=== PATIENT | female | born 1940 | race Caucasian/White ===

== ENCOUNTER → 2017-01-11 | Outpatient (CLI) | payer MEDICARE, OTHER ==
--- NOTE | 2017-01-11 09:17 | WOMENS IMAGING REPORT ---
EXAM DESCRIPTION: BILAT SCREENING MAMMO W/CAD COMPLETED DATE/TIME: 01/11/2017 8:35 am REASON FOR STUDY: Z12.31, ROUTINE SCREENING MAMMO Z12.31 ENCNTR SCREEN MAMMOGRAM FOR MALIGNANT NEOP LASM OF JITENDRA COMPARISON: October 2015 and October 2014 TECHNIQUE: Standard craniocaudal and mediolateral oblique views of each breast recorded using [employer] l acquisition. LIMITATIONS: None. FINDINGS: Findings present which are benign by mammographic criteria. No suspicious masses, calcifi cations or architectural distortion. Pertinent benign findings: The previously nodular changes in the central portion of the right breast which were demonstrated to represent cysts on the basis of a right breast ultrasound appears stable. Read with the assistance of CAD. .[facility] - R2 Cenova Version 1.3 .[facility] - R2 Cenova Version 1.3 .[facility] - R2 Cenova Version 2.4 .[facility] [place] R2 Cenova Version 2.4 .[facility] - R2 [employer] Version 9.2 Benign mammographic findings may include one or more of the following: Smooth masses, popcorn/rim/co arse calcifications, asymmetries, post-procedure changes, and lesions with long-standing stability. IMPRESSION: BENIGN MAMMOGRAPHIC FINDINGS. BIRADS 2 BREAST DENSITY: b. There are scattered areas of fibroglandular density. BIRAD: 2 BENIGN FINDING(S) RECOMMENDATION: ROUTINE SCREENING COMMENT: The patient has been notified of the results by letter per SA requirements. Additional no tification policies are in place for contacting patient with suspicious or incomplete findings. Quality ID #[id number]: The [employer] recommends an annual screening mammogram for women aged 40 years or over. This facility utilizes a reminder system to ensure that all patients receive reminder letters, and/or direct phone calls for appointments. This includes reminders for routine scr eening mammograms, diagnostic mammograms, or other Breast Imaging Interventions when appropriate. Th is patient will be placed in the appropriate reminder system. The [employer] (ACR) has developed recommendations for screening MRI of the breast s in certain patient populations, to be used in conjunction with mammography. Breast MRI surveillanc e may be appropriate for women with more than 20% lifetime risk of developing breast cancer as deter mined by genetic testing, significant family history of the disease, or history of mantle radiation f or Hodgkins Disease. ACR Practice Guidelines 2008. TECHNICAL DOCUMENTATION: FINDING NUMBER: (1) ASSESSMENT: (1) JOB ID: [id number] [employer]- All Rights Reserved
== END ==
LOC: WI 11:31
PROVIDERS: ATTEND Physician Assistant
DX: Z12.31 Encounter for screening mammogram for malignant neoplasm of breast (principal)
CPT/HCPCS: 77067; G0202

== ENCOUNTER 2017-05-23 09:10 | Inpatient (IN) | payer MEDICARE, OTHER ==
[2017-05-23 09:34] LABS: PROTHROMBIN TIME 13.8 SEC (11.4-15.4)
[2017-05-23 09:35] LABS: HEMATOCRIT 45.4 % (36.0-47.0); HEMOGLOBIN 15.4 g/dL (12.0-15.5); HGB HCT DIFFERENCE 0.8; MEAN CORPUSCULAR HGB CONC 33.9 g/dL (32.0-36.0); MEAN CORPUSCULAR VOLUME 89 fl (80-97); RED BLOOD COUNT 5.12 10^6/uL (3.72-5.28); RED CELL DISTRIBUTION WIDTH 13.1 % (11.5-14.0)
[2017-05-23 09:45] LABS: VENOUS BLOOD BASE EXCESS 2.6 mmol/L; VENOUS BLOOD HCO3 28.7 mmol/L (20-32); VENOUS BLOOD PH 7.38 (7.30-7.42)
[2017-05-23 09:49] LABS: ALANINE AMINOTRANSFERASE 41 U/L (9-52); ALKALINE PHOSPHATASE 74 U/L (38-126); ANION GAP 15 (5-19); ASPARTATE AMINO TRANSFERASE 52 U/L (14-36); BILIRUBIN,DIRECT 0.6 mg/dL (0.0-0.4); BILIRUBIN,TOTAL 1.1 mg/dL (0.2-1.3); BLOOD UREA NITROGEN 25 mg/dL (7-20); CALCIUM 9.1 mg/dL (8.4-10.2); CARBON DIOXIDE 25 mmol/L (22-30); CHLORIDE 108 mmol/L (98-107); CREATININE RESULT 0.49 mg/dL (0.52-1.25); GLUCOSE 130 mg/dL (75-110); POTASSIUM 4.6 mmol/L (3.6-5.0); SODIUM 147.6 mmol/L (137-145)
[2017-05-23 09:56] LABS: BAND NEUTROPHILS % (MANUAL) 1 % (3-5); BASOPHILS % (MANUAL) 0 % (0-2); EOSINOPHILS % (MANUAL) 0 % (0-6); LYMPHOCYTES % (MANUAL) 4 % (13-45); TOTAL CELLS COUNTED 100
[2017-05-23] MEDS ORDERED: CEFTRIAXONE 1 GM/D5W RTU 1 GM/50 ML RTUPB IV ONE (10:00)
[2017-05-23] MEDS ORDERED: RINGERS SOLUTION,LACTATED 1,000 ML IV ONE ×2 (10:00→11:00)
[2017-05-23 10:08] LABS: OVALOCYTES SLIGHT; PLATELET CLUMPS PRESENT; POIKILOCYTOSIS SLIGHT; TOXIC GRANULATION 1+; TOXIC VACUOLATION PRESENT
[2017-05-23 10:09] LABS: PATH REVIEW PATHOLOGIST REVIEWED
[2017-05-23 10:13] LABS: CREATINE KINASE MB 8.75 ng/mL (<4.55)
[2017-05-23 10:14] LABS: TROPONIN I < 0.012 ng/mL
--- NOTE | 2017-05-23 10:17 | RADIOLOGY REPORT (SQ) ---
EXAM DESCRIPTION: CT HEAD WITHOUT COMPLETED DATE/TIME: 05/23/2017 9:54 am REASON FOR STUDY: bed t1 stroke alert COMPARISON: None. TECHNIQUE: Axial images acquired through the brain without intravenous contrast. Images reviewed wi th bone, brain and subdural windows. Images stored on PACS. All CT scanners at this facility use dose modulation, iterative reconstruction, and/or weight based d osing when appropriate to reduce radiation dose to as low as reasonably achievable (ALARA). [facility]: Dose Right [facility]: CareDose [facility]: Dose Right [facility]: Teradose 4D [facility]: Smart Technologies RADIATION DOSE: CT Rad equipment meets quality standard of care and radiation dose reduction techniq ues were employed. CTDIvol: 49.0 mGy. DLP: 783 mGy-cm. mGy. LIMITATIONS: None. FINDINGS: VENTRICLES: Normal size and contour. CEREBRUM: Low density in the right frontal lobe, relatively well-defined. Consistent with MCA distri bution infarct, likely subacute. No hemorrhage or mass or shift evident. No hydrocephalus. CEREBELLUM: No masses. No hemorrhage. No alteration of density. No evidence for acute infarction. EXTRAAXIAL SPACES: No fluid collections. No masses. ORBITS AND GLOBE: No intra- or extraconal masses. Normal contour of globe without masses. CALVARIUM: No fracture. PARANASAL SINUSES: Mild fluid in the left maxillary sinus. SOFT TISSUES: Generalized deep scalp soft tissue swelling on the left. OTHER: No other significant finding. IMPRESSION: 1. Right MCA distribution infarct. Given how well defined this is, likely subacute. EVIDENCE OF ACUTE STROKE: NO. Pertinent positive or negative findings of the imaging study reported as a CRITICAL EXAM to Amy at1 0:11 on 05/23/2017. Category of Critical Exam: Stroke alert COMMENT: Quality ID # [id number]: Final reports with documentation of one or more dose reduction techniques (e.g., Automated exposure control, adjustment of the mA and/or kV according to patient size, use of iterative reconstruction technique) TECHNICAL DOCUMENTATION: JOB ID: [id number]- All Rights Reserved
--- NOTE | 2017-05-23 10:31 | RADIOLOGY REPORT (SQ) ---
EXAM DESCRIPTION: CHEST SINGLE VIEW COMPLETED DATE/TIME: 05/23/2017 10:16 am REASON FOR STUDY: left weakness, tachycardia COMPARISON: 01/06/2014 EXAM PARAMETERS: NUMBER OF VIEWS: One view. TECHNIQUE: Single frontal radiographic view of the chest acquired. RADIATION DOSE: NA LIMITATIONS: None. FINDINGS: LUNGS AND PLEURA: No opacities, masses or pneumothorax. No pleural effusion. MEDIASTINUM AND HILAR STRUCTURES: No masses. Contour normal. HEART AND VASCULAR STRUCTURES: Heart normal in size. Normal vasculature. BONES: No acute findings. HARDWARE: None in the chest. OTHER: No other significant finding. IMPRESSION: NO ACUTE RADIOGRAPHIC FINDING IN THE CHEST. TECHNICAL DOCUMENTATION: JOB ID: [id number] [employer]- All Rights Reserved
--- NOTE | 2017-05-23 10:31 | RADIOLOGY REPORT (SQ) ---
EXAM DESCRIPTION: PELVIS AP COMPLETED DATE/TIME: 05/23/2017 10:16 am REASON FOR STUDY: left weakness COMPARISON: None. NUMBER OF VIEWS: One view TECHNIQUE: AP Pelvis LIMITATIONS: None. FINDINGS: MINERALIZATION: Normal. HIPS: No acute fracture or dislocation. No worrisome bone lesions. PELVIS AND SACRUM: No acute fracture or dislocation. No worrisome bone lesions. PUBIS AND ISCHIUM: No acute fracture. LOWER LUMBAR SPINE: No significant findings as visualized. SOFT TISSUES: No findings. OTHER: No other significant finding. IMPRESSION: NEGATIVE STUDY OF THE PELVIS. TECHNICAL DOCUMENTATION: JOB ID: [id number] [employer]- All Rights Reserved
[2017-05-23 10:34] LABS: APPEARANCE,URINE CLEAR; BILIRUBIN,URINE NEGATIVE (NEGATIVE); GLUCOSE, URINE NEGATIVE (NEGATIVE); KETONES,URINE 80 mg/dL (NEGATIVE); LEUKOCYTE ESTERASE,URINE NEGATIVE (NEGATIVE); NITRITE,URINE NEGATIVE (NEGATIVE); PROTEIN,URINE 30 mg/dL (NEGATIVE); URINE SPECIFIC GRAVITY 1.031; UROBILINOGEN,URINE NEGATIVE mg/dL (<2.0)
[2017-05-23] MEDS ORDERED: DILTIAZEM HCL INJ 25 MG/5 ML VIAL IV ONE (11:04)
[2017-05-23] MEDS ORDERED: MORPHINE SULFATE 10 MG/ML INJ IV PRN (11:22)
[2017-05-23] MEDS ORDERED: ASPIRIN 300 MG SUPP, RECTAL PR ONE (11:22)
[2017-05-23] MEDS ORDERED: ONDANSETRON HCL INJ/PF 4 MG/2 ML SDV IV ONE (11:23)
--- NOTE | 2017-05-23 11:29 | ER Document Report ---
ED General - General Chief Complaint: Altered Mental Status Stated Complaint: POSSIBLE STROKE Time Seen by Provider: 05/23/17 09:20 Mode of Arrival: Medic Information source: Patient, Relative, Emergency Med Personnel Notes: The history is as per EMS, family. The patient does not remember much about the event. This is a 76-year-old female brought in by EMS after being found on the floor the bathroom this morning. The patient lives alone and is fairly active by report. She was last seen by neighbors on Monday. The patient's daughter states that she was unable to get a hold of the patient on the phone on Monday , then Monday, then Monday and came over to the house today. The patient was found with dysphasia and left-sided weakness. TRAVEL OUTSIDE OF THE [place] IN LAST 30 DAYS: No - HPI Onset: Last week Onset/Duration: Gradual Quality of pain: Achy, Dull Severity: None Pain Level: 1 Associated symptoms: Weakness. denies: Fever, Shortness of breath Exacerbated by: Denies Relieved by: Denies Similar symptoms previously: No Recently seen / treated by doctor: No - Related Data Allergies/Adverse Reactions: acetaminophen [From Percocet] Allergy (Verified 05/23/17 11:19) oxycodone [From Percocet] Allergy (Verified 05/23/17 11:19) Home Medications: Current Home Medications Hydrochlorothiazide [Hydrodiuril 12.5 mg Capsule] 12.5 mg PO QAM 05/23/17 [ History] Losartan Potassium [Cozaar 100 mg Tablet] 100 mg PO DAILY 05/23/17 [History] Simvastatin 10 mg PO QHS 05/23/17 [History] Past Medical History - General Information source: Relative, Emergency Med Personnel - Social History Smoking Status: Former Smoker Cigarette use (# per day): No Chew tobacco use (# tins/day): No Frequency of alcohol use: None Drug Abuse: None Lives with: Family Family History: Reviewed & Not Pertinent Patient has suicidal ideation: No Patient has homicidal ideation: No - Past Medical History Cardiac Medical History: Reports: Hx Hypercholesterolemia, Hx Hypertension - medicated Denies: Hx Heart Attack Pulmonary Medical History: Denies: Hx Asthma, Hx Tuberculosis Neurological Medical History: Reports: Hx Seizures - 40-50 years ago. Denies: Hx Cerebrovascular Accident Renal/ Medical History: Denies: Hx Peritoneal Dialysis GI Medical History: Reports: Hx Hepatitis - 40years ago. 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 Denies: Hx Hysterectomy, Hx Mastectomy, Hx Open Heart Surgery, Hx Pacemaker - Immunizations Hx Pneumococcal Vaccination: 06/26/10 Review of Systems - Review of Systems Constitutional: denies: Chills, Fever EENT: No symptoms reported Cardiovascular: No symptoms reported Respiratory: No symptoms reported Gastrointestinal: No symptoms reported Genitourinary: No symptoms reported Female Genitourinary: No symptoms reported Musculoskeletal: See HPI Skin: See HPI Hematologic/Lymphatic: No symptoms reported Neurological/Psychological: See HPI Physical Exam - Vital signs Vitals: Resp 16 05/23/17 09:17 Notes: Physical exam: GENERAL: 86-year-old female, alert, answering questions, appears dehydrated. There is a strong smell of urine and the patient's clothes are saturated with urine. HEAD: Atraumatic, normocephalic. EYES: Pupils equal round and reactive to light, extraocular movements intact, sclera anicteric, conjunctiva are normal. ENT: TMs normal, nares patent, oropharynx clear without exudates. Drymucous membranes. NECK: Normal range of motion, supple without obvious mass or JVD. LUNGS: Breath sounds clear to auscultation bilaterally and equal. No wheezes rales or rhonchi. HEART: Irregularly irregular and tachycardic. The heart rate monitor shows atrial fibrillation with a ventricular rate of 115-125 ABDOMEN: Soft, normoactive bowel sounds. No tenderness to palpation. No guarding, no rebound. No masses appreciated. EXTREMITIES: See skin exam below NEUROLOGICAL: The patient is alert, she knows she is in the hospital. She is unable to answer her age or month or year. She does not recall events leading up to the fall. Cranial nerves II through XII: The patient appears to have a right sided gaze preference, she does have left facial asymmetry. She does have left-sided weakness of the arms and legs. Her speech is significantly impaired. She does appropriately recognize her son and daughter. PSYCH: Normal mood, normal affect. SKIN: Patient does have pressure sores over the left hip. She has swelling of the left upper extremity. There is no pain of the left upper extremity. (She had been dependent on that side when she was found). The patient does have pressure sores over the left first and second matter carpals in the feet bilaterally. Course - Re-evaluation Re-evalutation: 05/23/17 11:29 Note: The onset of the stroke is not known. By report, it most likely is several days old. In any event, she is not a candidate for thrombolytics at this time. The patient does appear clinically dehydrated and I am treating her with IV fluids. She was given ceftriaxone initially because of an elevated white count (21,000) and aspirate strong urine smell. The UA has come back and does not look bad. Blood and urine cultures were sent. Chest x-ray shows no evidence of infection at this time. We will provide rate control after IV fluids. - Vital Signs Vital signs: Temp Pulse Resp BP Pulse Ox 98.5 F 106 H 20 105/62 99 05/23/17 16:58 05/23/17 18:40 05/23/17 16:58 05/23/17 16:58 05/23/17 16:58 - Laboratory Result Diagrams: 05/23/17 09:18 05/23/17 09:18 Laboratory results interpreted by me: 05/23/17 05/23/17 05/23/17 09:18 09:18 09:28 WBC 21.0 H Seg Neuts % (Manual) 82 H Band Neutrophils % 1 L Lymphocytes % (Manual) 4 L Metamyelocytes % 1 H Abs Neuts (Manual) 17.6 H Abs Monocytes (Manual) 2.5 H Sodium 147.6 H Chloride 108 H BUN 25 H Creatinine 0.49 L Glucose 130 H Direct Bilirubin 0.6 H AST 52 H Creatine Kinase 1039 H CK-MB (CK-2) Urine Protein Urine Ketones Urine Blood 05/23/17 05/23/17 09:28 09:40 WBC Seg Neuts % (Manual) Band Neutrophils % Lymphocytes % (Manual) Metamyelocytes % Abs Neuts (Manual) Abs Monocytes (Manual) Sodium Chloride BUN Creatinine Glucose Direct Bilirubin AST Creatine Kinase CK-MB (CK-2) 8.75 H Urine Protein 30 H Urine Ketones 80 H Urine Blood SMALL H - Diagnostic Test Radiology reviewed: Image reviewed, Reports reviewed - CT of the head shows a subacute stroke of the right MCA distribution - EKG Interpretation by Me Rhythm: A.Fib - EKG shows atrial fibrillation with a rapid ventricular rate at 148 Critical Care Note - Critical Care Note Total time excluding time spent on procedures (mins): 60 Discharge - Discharge Clinical Impression: Acute stroke, A. fib with RVR (new onset), Dehydration, Pressure sores Condition: Serious Disposition: ADMITTED INPATIENT Admitting Provider: Hospitalist - Dr Santiago Unit Admitted: [facility]
--- NOTE | 2017-05-23 11:49 | RADIOLOGY REPORT (SQ) ---
EXAM DESCRIPTION: HUMERUS LEFT COMPLETED DATE/TIME: 05/23/2017 11:35 am REASON FOR STUDY: left ext swelling COMPARISON: LEFT FOREARM TWO VIEWS SAME DATE NUMBER OF VIEWS: Two views. TECHNIQUE: Two radiographic images were acquired of the left humerus to include elbow and shoulder i n at least one projection. LIMITATIONS: None. FINDINGS: MINERALIZATION: Osteoporotic BONES: No acute fracture or dislocation. No worrisome bone lesions. SOFT TISSUES: No radiopaque foreign body. Diffuse subcutaneous edema OTHER: No other significant finding. IMPRESSION: No fracture. Subcutaneous edema. No soft tissue gas or radiopaque foreign body TECHNICAL DOCUMENTATION: JOB ID: [id number] [employer]- All Rights Reserved
--- NOTE | 2017-05-23 11:52 | RADIOLOGY REPORT (SQ) ---
EXAM DESCRIPTION: FOREARM LEFT COMPLETED DATE/TIME: 05/23/2017 11:35 am REASON FOR STUDY: swelling COMPARISON: Left humerus two views NUMBER OF VIEWS: Two views. TECHNIQUE: Two radiographic images acquired of the left forearm, including elbow and wrist in at finesse st one projection. LIMITATIONS: None. FINDINGS: MINERALIZATION: Osteoporotic BONES: No radius or ulna fracture. Carpal bones are intact. Question acute spiral nondisplaced frac ture 5th metacarpal diaphysis, marked with a [place]. SOFT TISSUES: Diffuse forearm soft tissue swelling OTHER: No other significant finding. IMPRESSION: Diffuse forearm soft tissue swelling. No fracture of the radius or ulna Question nondisplaced fracture versus nutrient groove midshaft 5th metacarpal TECHNICAL DOCUMENTATION: JOB ID: [id number] [employer]- All Rights Reserved
[2017-05-23] MEDS ORDERED: DEXTROSE 40% GEL 15 GM TUBE PO PRN ×2 (12:34)
[2017-05-23] MEDS ORDERED: IPRATROPIUM/ALBUTEROL 0.5-2.5 MG/3 ML AMPUL NEB PRN (12:34)
[2017-05-23] MEDS ORDERED: ACETAMINOPHEN 650 MG SUPP.RECT PR PRN (12:34)
[2017-05-23] MEDS ORDERED: ONDANSETRON HCL INJ/PF 4 MG/2 ML SDV IV PRN (12:34)
[2017-05-23] MEDS ORDERED: DEXTROSE 50%-WATER 25 GM/50 ML DISP.SYRIN IV PRN ×2 (12:34)
[2017-05-23] MEDS ORDERED: GLUCAGON,HUMAN RECOMB 1 MG INJ SUBCUT PRN (12:34)
--- NOTE | 2017-05-23 13:35 | EKG REPORT ---
SEVERITY:- ABNORMAL ECG - ATRIAL FIBRILLATION, V-RATE 118-188 REPOLARIZATION ABNORMALITY, PROB RATE RELATED : Confirmed by: Jose Cruz Hodges MD 23-May-2017 13:35:17
--- NOTE | 2017-05-23 14:41 | RADIOLOGY REPORT (SQ) ---
EXAM DESCRIPTION: CAROTID DOPPLER COMPLETED DATE/TIME: 05/23/2017 2:29 pm REASON FOR STUDY: acute stroke COMPARISON: CT brain 05/23/2017 TECHNIQUE: Grayscale ultrasound, Doppler velocity and spectra, and color Doppler images acquired of the extra-cranial carotid and vertebral arteries. Images stored on PACS. LIMITATIONS: None. FINDINGS: RIGHT CAROTID CCA Velocities: Within normal limits. ICA Velocities Peak systolic 0.68 m/s. End diastolic 0.25 m/s. Proximal ICA/CCA peak systolic ratio 1.1. Spectra normal. No significant plaque. LEFT CAROTID CCA Velocities: Within normal limits. ICA Velocities Peak systolic 0.77 m/s. End diastolic 0.27 m/s. Proximal ICA/CCA peak systolic ratio 1.1. Spectra normal. No significant plaque. VERTEBRAL ARTERIES: Antegrade flow. Normal waveforms. SUBCLAVIAN ARTERIES: Not evaluated OTHER: No other significant finding. IMPRESSION: NO HEMODYNAMICALLY SIGNIFICANT STENOSIS. COMMENT: Quality ID #[id number]: Velocity criteria are extrapolated from the diameter data as defined by t he Society of Radiologists in Ultrasound Consensus Conference. Radiology 2003: 229; 340-346. TECHNICAL DOCUMENTATION: JOB ID: [id number]- All Rights Reserved
[2017-05-23] MEDS ORDERED: DILTIAZEM HCL/D5W 125 MG/125 ML RTUINJ IV PRN ×2 (16:27→16:46)
--- NOTE | 2017-05-23 16:51 | XCELERA REPORT ---
[address] [address] Transthoracic Echocardiogram Report Name: SANYA CHAU Age: 76 yrs Gender: Female : 1940 Patient Status: Inpatient Patient Location: [address] [place] [address] Study Date: 05/23/2017 01:41 PM Weight: 164 lb Procedure: A two-dimensional transthoracic echocardiogram with color flow and Doppler was performed. Study Quality: Technically suboptimal. Reason For Study: acute stroke History: CVA. Ordering Physician: JUAN HARRINGTON Performed By: Praveena Fraire Interpretation Summary Probably no LVH,and probably no wall motion abnormality.LVEF 60%.Not a study to detect thrombus.Probably no MR,TR,or [place].Cannt assess RVSP.No and no AR.Recommend FERNIE. MMode/2D Measurements & Calculations RVDd: 3.9 cm LVIDd: 3.3 cm FS: 30.8 % Ao root diam: 3.3 cm IVSd: 1.1 cm LVIDs: 2.3 cm EDV(Teich): 43.7 ml Ao root area: 8.6 cm2 LVPWd: 1.1 cm ESV(Teich): 17.6 ml LA dimension: 2.9 cm EF(Teich): 59.7 % Doppler Measurements & Calculations MV E max jordon: MV P1/2t max jordon: Ao V2 max: LV V1 max P.3 cm/sec 97.7 cm/sec 140.4 cm/sec 3.4 mmHg MV P1/2t: 63.9 msec Ao max PG: LV V1 max: MVA(P1/2t): 3.4 cm2 7.9 mmHg 92.8 cm/sec MV dec slope: 447.7 cm/sec2 PA V2 max: 92.8 cm/sec PA max P.4 mmHg Left Ventricle Probably no LVH,and probably no wall motion abnormality.LVEF 60%.Not a study to detect thrombus.Probably no MR,TR,or [place].Cannt assess RVSP.No and no AR.Recommend FERNIE. : JUAN HARRINGTON > Aiyana Dowd
--- NOTE | 2017-05-23 16:53 | PDOC H&P ---
History of Present Illness Admission Date/PCP: 05/23/17 12:03 CLAIRE NICE MD History of Present Illness: SANYA CHAU is a 76 year old white female with a past medical history of atrial fibrillation and hypertension who presents to the service after being found down for period of about 3 days. According to the patient's family they last saw her on Monday. The patient lives alone and usually walks well without any assistive devices. The patient does not have a history of regular falls. The patient's children called to check on her Monday but got no answer. They called Monday and Monday and still got no answer. They [address] and decided to go by the house this morning. Unfortunately, they found the patient in the bathroom laying on the ground. They noted that she had left- sided weakness and called the ambulance. The patient has no recollection of what happened. She does not know how she fell or ended up on the ground. The patient does have a history of atrial fibrillation. This was diagnosed in December 2013. At that time she was placed on Xarelto. She was on antihypertensives as well as simvastatin. She remained anticoagulated for about a year and a half. The patient states and her [id number] confirms that she was changed from Xarelto to Coumadin at one point. After the year and a half of anticoagulation she was taken off of her Coumadin. It is been 2 years since she has had any blood thinner. According to the patient and her [id number], the patient was "doing well". Therefore, the medication was stopped. Her last echocardiogram at this hospital was at the time of her initial diagnosis of A. fib. EF at that time was 60%. In the emergency room the patient was found to be in A. fib with RVR. Her rate was between 115 and 120. She been given 1 L of lactated Ringer's and was started on the second. Diltiazem was also given and CK was found to be at 1039. She was noted to have pressure sores on the left hip and a white count of 21. She was given a dose of Rocephin. She was not found to be in acute renal failure. X-rays of the pelvis and humerus were negative for fracture. The patient had a CT of the head done which showed right MCA subacute stroke. At the bedside the patient at one point does become emotional and tearful. She does not want to be a burden to her family. Past Medical History Cardiac Medical History: Reports: Atrial Fibrillation, Hyperlipidema, Hypertension - medicated Neurological Medical History: Reports: Seizures - 40-50 years ago GI Medical History: Reports: Hepatitis - 40years ago Past Surgical History Past Surgical History: Reports: Tonsillectomy, Vascular Surgery Social History Smoking Status: Former Smoker Frequency of Alcohol Use: None Hx Recreational Drug Use: No Hx Prescription Drug Abuse: No - Advance Directive Resuscitation Status: Do Not Resuscitate Family History Family History: Hypertension Parental Family History Reviewed: Yes Children Family History Reviewed: Yes Sibling(s) Family History Reviewed.: Yes Medication/Allergy Home Medications: Hydrochlorothiazide [Hydrodiuril 12.5 mg Capsule] 12.5 mg PO QAM 05/23/17 Losartan Potassium [Cozaar 100 mg Tablet] 100 mg PO DAILY 05/23/17 Simvastatin 10 mg PO QHS 05/23/17 Allergies/Adverse Reactions: acetaminophen [From Percocet] Allergy (Verified 05/23/17 11:19) oxycodone [From Percocet] Allergy (Verified 05/23/17 11:19) Review of Systems Review of Systems: Review of systems is difficult to obtain secondary to the patient's dysarthria. At the bedside she currently denies any chest pain or shortness of breath. No weight changes that I could discern. The patient usually gets up and walks on her own without any assistive devices. No palpitations. Her family is at the bedside and does not report that the patient has had any complaints with them. No fevers or chills recently. Physical Exam Vital Signs: Temp Pulse Resp BP Pulse Ox 98.4 F 18 97/70 L 95 05/23/17 12:01 05/23/17 12:01 05/23/17 12:01 05/23/17 12:01 GENERAL: This is a well-developed, well-nourished appearing elderly white female resting in bed currently in no acute distress. HEENT: Normocephalic. Atraumatic. Trachea is midline. Sclera are anicteric. Moist mucous membranes (the patient however has just had her mouth washed out with swabs). HEART: Irregular rate and rhythm. Tachycardic. I do not discern any rubs or gallops. Questionable murmur. LUNGS: Clear to auscultation anteriorly bilaterally with equal rise and fall of the chest. ABDOMEN: Soft, nontender, nondistended with normoactive bowel sounds EXTREMETIES: No clubbing, cyanosis or edema of the lower extremities. 2+ peripheral pulses bilaterally. Strength in the left upper and lower extremity to 2 out of 5. On the right the patient's network solutions architect is a 3 out of 5. Display Fabricator on the left and 2 out of 5. Right lower extremity is a 2-3 out of 5. Left arm and hand edema is present 2+. NEURO: Awake, alert and oriented 3. speech is garbled. I can make out about 50% of what the patient is saying. Left facial droop. Patient has difficulty shrugging her left shoulder. Muscle strength is weak around the orbit on the left side. Results Impressions: Head CT 05/23/17 09:46 IMPRESSION: 1. Right MCA distribution infarct. Given how well defined this is , likely subacute. EVIDENCE OF ACUTE STROKE: NO. Pertinent positive or negative findings of the imaging study reported as a CRITICAL EXAM to Amy at10:11 on 05/23/2017. Category of Critical Exam: Stroke alert Chest X-Ray 05/23/17 09:52 IMPRESSION: NO ACUTE RADIOGRAPHIC FINDING IN THE CHEST. Pelvis X-Ray 05/23/17 09:53 IMPRESSION: NEGATIVE STUDY OF THE PELVIS. Humerus X-Ray 05/23/17 11:01 IMPRESSION: No fracture. Subcutaneous edema. No soft tissue gas or radiopaque foreign body Forearm X-Ray 05/23/17 11:04 IMPRESSION: Diffuse forearm soft tissue swelling. No fracture of the radius or ulna Question nondisplaced fracture versus nutrient groove midshaft 5th metacarpal Assessment & Plan - Diagnosis (1) Stroke Qualifiers: Precerebral and cerebral artery: middle cerebral artery Laterality of affected vessel: right Is this a current diagnosis for this admission?: Yes Plan: Continue daily pr asa until cleared by speech. begin statin once able. begin anticoagulation in am if able. permissive hypertension. consult PT/OT/speech. (2) Paroxysmal atrial fibrillation Is this a current diagnosis for this admission?: Yes Plan: Rate control and anticoagulation. patient was not fall risk prior to this episode. (3) Dyslipidemia Plan: check lipid panel. begin statin as part of stroke management. (4) HTN (hypertension), benign Is this a current diagnosis for this admission?: Yes Plan: Permissive hypertension. Unfortunately we will need to keep rate 110 or less. (5) UTI (urinary tract infection) Qualifiers: Urinary tract infection type: site unspecified Is this a current diagnosis for this admission?: Yes Plan: Possible urinary tract infection. The patient was noted to have a very strong odor to the urine. Urinalysis essentially negative. She was given a dose of Rocephin down in the ED. Cultures have been sent. (6) Rhabdomyolysis Plan: CK at 1039. This is secondary to being down for so long. Although, I would expect it to be higher. Continue to monitor. (7) Hypernatremia Is this a current diagnosis for this admission?: Yes Plan: Likely due to slight dehydration. Although, her BUN and creatinine look pretty good. She is received 2 L of lactated Ringer's down in the ED. Continue to monitor. (8) Leukocytosis Is this a current diagnosis for this admission?: Yes Plan: Likely secondary from being down. I believe this is reactive. Patient could have an underlying urinary tract infection. However, her urinalysis looks pretty good. (9) Arm edema Is this a current diagnosis for this admission?: Yes Plan: It is likely that the patient was laying on that side for several hours to days.. X-rays negative for fracture. Keep arm elevated. (10) Metacarpal bone fracture Qualifiers: Encounter type: initial encounter Metacarpal bone: fifth Fracture type: closed Metacarpal location: other portion of metacarpal Fracture alignment: nondisplaced Laterality: left Qualified Code(s): S62.397A - Other fracture of fifth metacarpal bone, left hand, initial encounter for closed fracture Is this a current diagnosis for this admission?: Yes Plan: X-ray suggests that there could be a nondisplaced fracture of the fifth metacarpal bone. We will obtain a better look with CT. - Time Time Spent: 50 to 70 Minutes - Inpatient Certification Medical Necessity: Need Close Monitoring Due to Risk of Patient Decompensation
[2017-05-23] MEDS: POTASSI CL 20 MEQ/D5-1/2NS 1L 1,000 ML IV PRN (16:59)
[2017-05-23] MEDS: PANTOPRAZOLE SODIUM 40 MG VIAL IV SCH (17:13)
[2017-05-24] MEDS: POTASSI CL 20 MEQ/D5-1/2NS 1L 1,000 ML IV PRN ×2 (05:01→22:16)
[2017-05-24] MEDS: PANTOPRAZOLE SODIUM 40 MG VIAL IV SCH ×2 (05:05→17:26)
[2017-05-24 06:12] LABS: ABSOLUTE EOSINOPHILS # (AUTO) 0.1 10^3/uL (0.0-0.6); ABSOLUTE LYMPHOCYTES (AUTO) 1.5 10^3/uL (0.5-4.7); ABSOLUTE MONOCYTES (AUTO) 1.3 10^3/uL (0.1-1.4); ABSOLUTE NEUT (AUTO) 9.8 10^3/uL (1.7-8.2); BASOPHILS % (AUTO) 0.4 % (0-2); EOSINOPHILS % (AUTO) 1.1 % (0-6); HEMATOCRIT 38.1 % (36.0-47.0); HEMOGLOBIN 12.9 g/dL (12.0-15.5); HGB HCT DIFFERENCE 0.6; MEAN CORPUSCULAR HEMOGLOBIN 30.2 pg (27.0-33.4); MEAN CORPUSCULAR VOLUME 89 fl (80-97); RED BLOOD COUNT 4.29 10^6/uL (3.72-5.28); RED CELL DISTRIBUTION WIDTH 13.5 % (11.5-14.0); SEGMENTED NEUTROPHILS % (AUTO) 76.5 % (42-78); WHITE BLOOD COUNT 12.8 10^3/uL (4.0-10.5)
[2017-05-24 06:25] LABS: PROTHROMBIN TIME 14.1 SEC (11.4-15.4)
[2017-05-24 06:28] LABS: ANION GAP 8 (5-19); BLOOD UREA NITROGEN 17 mg/dL (7-20); CALCIUM 8.3 mg/dL (8.4-10.2); CARBON DIOXIDE 28 mmol/L (22-30); CHLORIDE 111 mmol/L (98-107); CHOLESTEROL 121.84 mg/dL (0-200); CREATININE RESULT 0.51 mg/dL (0.52-1.25); Direct HDL 49 mg/dL (>40); GLUCOSE 121 mg/dL (75-110); MAGNESIUM 2.4 mg/dL (1.6-2.3); POTASSIUM 4.2 mmol/L (3.6-5.0); SODIUM 146.9 mmol/L (137-145); TRIGLYCERIDES 93 mg/dL (<150)
[2017-05-24 06:39] LABS: DIRECT LDL 43 mg/dL (<100)
[2017-05-24] MEDS: ASPIRIN 300 MG SUPP, RECTAL PR SCH (10:55)
--- NOTE | 2017-05-24 14:07 | PDOC PROGRESS REPORT ---
Subjective Progress Note for:: 05/24/17 Subjective:: This is a follow-up visit for subacute stroke and atrial fibrillation. The patient has had improvement in her speech from yesterday. Speech therapy did contact me and state that they feel it is still unsafe for her to swallow at this point. They will reevaluate her tomorrow. The patient's heart rate is in the 80s when she is sleep. There are times when she goes back up to the 120s and 130s with excitement. Reason For Visit: SUBACUTE STROKE,AFIB WITH RVR Physical Exam Vital Signs: Temp Pulse Resp BP Pulse Ox 98.7 F 100 16 123/86 H 97 05/24/17 11:32 05/24/17 13:25 05/24/17 12:00 05/24/17 13:25 05/24/17 12:00 Intake & Output 05/23/17 05/24/17 05/25/17 06:59 06:59 06:59 Intake Total 978 0 Output Total 400 150 Balance 578 -150 Weight 81.3 kg GENERAL: This is a well-developed, well-nourished appearing elderly white female resting in bed currently in no acute distress. HEART: Irregular rate and rhythm. Tachycardic. No murmurs rubs or gallops. LUNGS: Clear to auscultation anteriorly bilaterally. Crackles at the right lung base With equal rise and fall of the chest. ABDOMEN: Soft, nontender, nondistended with normoactive bowel sounds EXTREMETIES: No clubbing, cyanosis or edema of the lower extremities. 2+ peripheral pulses bilaterally. NEURO: Awake, alert and oriented 3. Speech is more fluent today. I can make out at least 95% with the patient has to say. Results Laboratory Results: 05/24/17 05:49 05/24/17 05:49 05/24/17 05/24/17 05/24/17 05:49 05:49 05:49 WBC 12.8 H RBC 4.29 Hgb 12.9 D Hct 38.1 MCV 89 MCH 30.2 MCHC 34.0 RDW 13.5 Plt Count 268 Seg Neutrophils % 76.5 Lymphocytes % 12.0 L Monocytes % 10.0 Eosinophils % 1.1 Basophils % 0.4 Absolute Neutrophils 9.8 H Absolute Lymphocytes 1.5 Absolute Monocytes 1.3 Absolute Eosinophils 0.1 Absolute Basophils 0.0 Sodium 146.9 H Potassium 4.2 Chloride 111 H Carbon Dioxide 28 Anion Gap 8 BUN 17 Creatinine 0.51 L Est GFR ( Amer) > 60 Est GFR (Non-Af Amer) > 60 Glucose 121 H Calcium 8.3 L Magnesium 2.4 H Triglycerides 93 Cholesterol 121.84 LDL Cholesterol Direct 43 VLDL Cholesterol 19.0 HDL Cholesterol 49 TSH 0.52 Impressions: Carotid Doppler Study 05/23/17 00:00 IMPRESSION: NO HEMODYNAMICALLY SIGNIFICANT STENOSIS. Head CT 05/23/17 09:46 IMPRESSION: 1. Right MCA distribution infarct. Given how well defined this is , likely subacute. EVIDENCE OF ACUTE STROKE: NO. Pertinent positive or negative findings of the imaging study reported as a CRITICAL EXAM to Amy at10:11 on 05/23/2017. Category of Critical Exam: Stroke alert Chest X-Ray 05/23/17 09:52 IMPRESSION: NO ACUTE RADIOGRAPHIC FINDING IN THE CHEST. Pelvis X-Ray 05/23/17 09:53 IMPRESSION: NEGATIVE STUDY OF THE PELVIS. Humerus X-Ray 05/23/17 11:01 IMPRESSION: No fracture. Subcutaneous edema. No soft tissue gas or radiopaque foreign body Forearm X-Ray 05/23/17 11:04 IMPRESSION: Diffuse forearm soft tissue swelling. No fracture of the radius or ulna Question nondisplaced fracture versus nutrient groove midshaft 5th metacarpal Assessment & Plan - Diagnosis (1) Stroke Qualifiers: Precerebral and cerebral artery: middle cerebral artery Laterality of affected vessel: right Is this a current diagnosis for this admission?: Yes Plan: Continue daily pr asa until cleared by speech. begin statin once able. Begin heparin drip in preparation for anticoagulation. Once able to take p.o. stop heparin drip and begin Xarelto. Discontinue permissive hypertension. consult PT/OT/speech. (2) Paroxysmal atrial fibrillation Is this a current diagnosis for this admission?: Yes Plan: Rate control and anticoagulation. patient was not fall risk prior to this episode. Begin Xarelto when able. (3) Dyslipidemia Plan: check lipid panel. begin statin as part of stroke management when able. (4) HTN (hypertension), benign Is this a current diagnosis for this admission?: Yes Plan: Patient's blood pressures and pulses have been labile. Will discontinue Cardizem drip and begin metoprolol every 6 hours IV 5 mg. With hold parameters. (5) UTI (urinary tract infection) Qualifiers: Urinary tract infection type: site unspecified Is this a current diagnosis for this admission?: Yes Plan: Possible urinary tract infection. The patient was noted to have a very strong odor to the urine. Urinalysis essentially negative. She was given a dose of Rocephin down in the ED. Cultures have been sent and are pending. Antibiotics are not currently being continued.. (6) Rhabdomyolysis Plan: Recheck CK tomorrow. (7) Hypernatremia Is this a current diagnosis for this admission?: Yes Plan: Likely due to slight dehydration. Continue fluids for now. (8) Leukocytosis Is this a current diagnosis for this admission?: Yes Plan: Likely secondary from being down. I believe this is reactive. White blood cell count is improved. Cultures are pending for urine and blood. (9) Arm edema Is this a current diagnosis for this admission?: Yes Plan: It is likely that the patient was laying on that side for several hours to days.. X-rays negative for fracture. Keep arm elevated. (10) Metacarpal bone fracture Qualifiers: Encounter type: initial encounter Metacarpal bone: fifth Fracture type: closed Metacarpal location: other portion of metacarpal Fracture alignment: nondisplaced Laterality: left Qualified Code(s): S62.397A - Other fracture of fifth metacarpal bone, left hand, initial encounter for closed fracture Is this a current diagnosis for this admission?: Yes Plan: X-ray suggests that there could be a nondisplaced fracture of the fifth metacarpal bone. We will obtain a better look with CT. - Time Time Spent with patient: 25-34 minutes
[2017-05-24] MEDS ORDERED: HEPARIN SOD (PORCINE) 1,000 UNIT/ML 10 ML VIAL IV ONE (15:00)
--- NOTE | 2017-05-24 15:45 | RADIOLOGY REPORT (SQ) ---
EXAM DESCRIPTION: CHEST PA/LAT COMPLETED DATE/TIME: 05/24/2017 3:37 pm REASON FOR STUDY: rll crackles COMPARISON: 05/23/2017 EXAM PARAMETERS: NUMBER OF VIEWS: two views TECHNIQUE: Digital Frontal and Lateral radiographic views of the chest acquired. RADIATION DOSE: NA LIMITATIONS: none FINDINGS: LUNGS AND PLEURA: No opacities, masses or pneumothorax. No pleural effusion. MEDIASTINUM AND HILAR STRUCTURES: No masses or contour abnormalities. HEART AND VASCULAR STRUCTURES: Heart normal size. No evidence for failure. BONES: No acute findings. HARDWARE: None in the chest. OTHER: No other significant finding. IMPRESSION: NO SIGNIFICANT RADIOGRAPHIC FINDING IN THE CHEST. TECHNICAL DOCUMENTATION: JOB ID: [id number] [employer]- All Rights Reserved
--- NOTE | 2017-05-24 16:00 | RADIOLOGY REPORT (SQ) ---
EXAM DESCRIPTION: CT LT UPPER EXTREMITY WITHOUT COMPLETED DATE/TIME: 05/24/2017 3:28 pm REASON FOR STUDY: possible left metacarpal fracture COMPARISON: None. TECHNIQUE: Axial imaging performed through the left wrist and proximal hand with reformatted coronal and sagittal imaging windowed for bone and soft tissues. Images saved to PACS. 3D IMAGING: Were 3D images as MIP, SSD, or volume rendering performed at the work station? No. All CT scanners at this facility use dose modulation, iterative reconstruction, and/or weight based d osing when appropriate to reduce radiation dose to as low as reasonably achievable (ALARA). [facility]: Dose Right [facility]: CareDose [facility]: Dose Right [facility]: Teradose 4D [facility]: [employer] LIMITATIONS: None. RADIATION DOSE: CT Rad equipment meets quality standard of care and radiation dose reduction techniq ues were employed. CTDIvol: 19.6 mGy. DLP: 443 mGy-cm. mGy. FINDINGS: SOFT TISSUES: No obvious swelling or foreign body. BONES: No acute fracture. No dislocation. MINERALIZATION: Normal. OTHER: No other significant finding. IMPRESSION: NO ACUTE OR SIGNIFICANT FINDING. TECHNICAL DOCUMENTATION: JOB ID: [id number] Quality ID # [id number]: Final reports with documentation of one or more dose reduction techniques (e.g., Au tomated exposure control, adjustment of the mA and/or kV according to patient size, use of iterative reconstruction technique) 2010 [employer]- All Rights Reserved
[2017-05-24] MEDS: HEPARIN SODIUM,PORCINE/D5W 25,000 UNIT/250 ML RTUINJ IV PRN (16:21)
[2017-05-24 16:43] LABS: PROTHROMBIN TIME 13.1 SEC (11.4-15.4)
[2017-05-24] MEDS: METOPROLOL TARTRATE PF/INJ 5 MG/5 ML SDV IV SCH ×2 (17:26→23:37)
[2017-05-24] MEDS: HEPARIN SOD (PORCINE) 1,000 UNIT/ML 10 ML VIAL IV PRN (23:37)
[2017-05-25] MEDS: METOPROLOL TARTRATE PF/INJ 5 MG/5 ML SDV IV SCH ×4 (05:15→23:22)
[2017-05-25] MEDS: PANTOPRAZOLE SODIUM 40 MG VIAL IV SCH (05:17)
[2017-05-25 06:16] LABS: ABSOLUTE BASOPHILS # (AUTO) 0.1 10^3/uL (0.0-0.2); ABSOLUTE EOSINOPHILS # (AUTO) 0.3 10^3/uL (0.0-0.6); ABSOLUTE LYMPHOCYTES (AUTO) 1.7 10^3/uL (0.5-4.7); ABSOLUTE MONOCYTES (AUTO) 1.2 10^3/uL (0.1-1.4); BASOPHILS % (AUTO) 0.9 % (0-2); EOSINOPHILS % (AUTO) 2.9 % (0-6); HEMATOCRIT 34.7 % (36.0-47.0); HGB HCT DIFFERENCE 1.3; LYMPHOCYTES % (AUTO) 15.1 % (13-45); MEAN CORPUSCULAR HEMOGLOBIN 30.6 pg (27.0-33.4); MEAN CORPUSCULAR HGB CONC 34.4 g/dL (32.0-36.0); MEAN CORPUSCULAR VOLUME 89 fl (80-97); MONOCYTES % (AUTO) 10.3 % (3-13); RED BLOOD COUNT 3.91 10^6/uL (3.72-5.28); RED CELL DISTRIBUTION WIDTH 13.5 % (11.5-14.0); SEGMENTED NEUTROPHILS % (AUTO) 70.8 % (42-78); WHITE BLOOD COUNT 11.3 10^3/uL (4.0-10.5)
[2017-05-25 06:33] LABS: BLOOD UREA NITROGEN 12 mg/dL (7-20); CALCIUM 8.2 mg/dL (8.4-10.2); CARBON DIOXIDE 30 mmol/L (22-30); CREATINE KINASE 210 U/L (30-135); CREATININE RESULT 0.46 mg/dL (0.52-1.25); GLUCOSE 122 mg/dL (75-110); MAGNESIUM 2.4 mg/dL (1.6-2.3); POTASSIUM 4.2 mmol/L (3.6-5.0); SODIUM 147.2 mmol/L (137-145)
[2017-05-25 06:38] LABS: ANION GAP 6 (5-19); CHLORIDE 111 mmol/L (98-107)
[2017-05-25] MEDS: ASPIRIN 300 MG SUPP, RECTAL PR SCH (09:46)
[2017-05-25] MEDS ORDERED: ONDANSETRON HCL INJ/PF 4 MG/2 ML SDV IV PRN (11:00)
[2017-05-25] MEDS: POTASSI CL 20 MEQ/D5-1/2NS 1L 1,000 ML IV PRN (11:56)
--- NOTE | 2017-05-25 13:45 | Physician Advisory Note ---
Physician Advisor ProgressNote .: Pursuant to the plan for [facility], I have reviewed the medical record for this patient. Physician Advisor Statement: Nice documentation of type/location of CVA. Please consider documentin. "Lt hemiparesis due to CVA" Thanks! CK
--- NOTE | 2017-05-25 14:50 | PDOC PROGRESS REPORT ---
Subjective Progress Note for:: 05/25/17 Subjective:: No new events overnight, her daughter at the bedside indicates she thinks the patient is improving. For her part the patient reports hunger and wishes we would advance her diet. She denies headache, numbness, tingling, dizziness, chest pain, palpitations, fevers, chills. I have not heard from speech therapy today and the daughter reports he has not seen them yet this morning. The patient continues to have secretions and will occasionally cough and clear her throat implying some persistent difficulty. ROS: All systems reviewed, see above, remaining systems negative. Reason For Visit: SUBACUTE STROKE,AFIB WITH RVR Physical Exam Vital Signs: Temp Pulse Resp BP Pulse Ox 98.0 F 100 18 126/72 H 91 L 05/25/17 11:32 05/25/17 11:32 05/25/17 11:32 05/25/17 11:32 05/25/17 11:32 Intake & Output 05/24/17 05/25/17 05/26/17 06:59 06:59 06:59 Intake Total 978 1915 0 Output Total 400 570 200 Balance 578 1345 -200 Weight 81.3 kg 82.3 kg General appearance: PRESENT: no acute distress, well-developed, well-nourished Eye exam: PRESENT: EOMI, PERRLA. ABSENT: scleral icterus Mouth exam: PRESENT: moist, neck supple Neck exam: PRESENT: full ROM. ABSENT: carotid bruit, tracheal deviation Respiratory exam: PRESENT: crackles - At the bilateral bases, unlabored. ABSENT : accessory muscle use, rhonchi, wheezes Cardiovascular exam: PRESENT: irregular rhythm. ABSENT: systolic murmur Pulses: PRESENT: normal radial pulses GI/Abdominal exam: PRESENT: normal bowel sounds, soft. ABSENT: tenderness Extremities exam: PRESENT: +1 edema - Left hand and arm. ABSENT: pedal edema Neurological exam: PRESENT: alert, awake, oriented to person, oriented to place , oriented to time, oriented to situation, reflexes normal, motor sensory deficit - Left hemineglect, aphasic - Slurred speech. ABSENT: CN II-XII grossly intact Psychiatric exam: PRESENT: appropriate affect, normal mood Skin exam: PRESENT: warm - Moist Results Laboratory Results: 05/25/17 05:53 05/25/17 05:53 05/25/17 05/25/17 05:53 05:53 WBC 11.3 H RBC 3.91 Hgb 12.0 Hct 34.7 L MCV 89 MCH 30.6 MCHC 34.4 RDW 13.5 Plt Count 235 Seg Neutrophils % 70.8 Lymphocytes % 15.1 Monocytes % 10.3 Eosinophils % 2.9 Basophils % 0.9 Absolute Neutrophils 8.0 Absolute Lymphocytes 1.7 Absolute Monocytes 1.2 Absolute Eosinophils 0.3 Absolute Basophils 0.1 Sodium 147.2 H Potassium 4.2 Chloride 111 H Carbon Dioxide 30 Anion Gap 6 BUN 12 Creatinine 0.46 L Est GFR ( Amer) > 60 Est GFR (Non-Af Amer) > 60 Glucose 122 H Calcium 8.2 L Magnesium 2.4 H 05/25/17 05:53 Creatine Kinase 210 H Impressions: Carotid Doppler Study 05/23/17 00:00 IMPRESSION: NO HEMODYNAMICALLY SIGNIFICANT STENOSIS. Head CT 05/23/17 09:46 IMPRESSION: 1. Right MCA distribution infarct. Given how well defined this is , likely subacute. EVIDENCE OF ACUTE STROKE: NO. Pertinent positive or negative findings of the imaging study reported as a CRITICAL EXAM to [facility] at10:11 on 05/23/2017. Category of Critical Exam: Stroke alert Chest X-Ray 05/24/17 00:00 IMPRESSION: NO SIGNIFICANT RADIOGRAPHIC FINDING IN THE CHEST. Upper Extremity CT 05/24/17 00:00 IMPRESSION: NO ACUTE OR SIGNIFICANT FINDING. Status: Imported from PACS Assessment & Plan - Diagnosis (1) Acute right arterial ischemic stroke, MCA (middle cerebral artery) Is this a current diagnosis for this admission?: Yes Plan: Today with evidence of a left hemineglect. Likely related to the paroxysmal atrial fibrillation and thromboembolic in nature, her echocardiogram was of poor quality and could not confirm or rule out embolic source. Therefore, we will continue full dose heparin as the extent of the stroke appears to be less than 25% of total brain area and subacute in nature with no evidence of hemorrhage. Continue aspirin per rectum and initiate statin therapy when able. Continue PT/OT/ST and advance diet when cleared. (2) Arm edema Is this a current diagnosis for this admission?: Yes Plan: Likely related to soft tissue injury related to her fall and immobility on the floor after her stroke. No CT evidence for metacarpal fracture. (3) Dyslipidemia Is this a current diagnosis for this admission?: Yes Plan: Initiate statin therapy when able to take oral. (4) Hypernatremia Is this a current diagnosis for this admission?: Yes Plan: Likely due to decreased oral intake, continue IV fluids for now. (5) Rhabdomyolysis Qualifiers: Rhabdomyolysis type: traumatic Encounter type: subsequent encounter Qualified Code(s): T79.6XXD - Traumatic ischemia of muscle, subsequent encounter Is this a current diagnosis for this admission?: Yes Plan: Mild and improved with IV fluids. (6) Paroxysmal atrial fibrillation Is this a current diagnosis for this admission?: Yes Plan: Continue scheduled Toprol and full dose heparin with change to oral regimen including metoprolol and Xarelto when able to take p.o. (7) HTN (hypertension), benign Is this a current diagnosis for this admission?: Yes Plan: Currently at goal, continue current regimen. (8) Leukocytosis Qualifiers: Leukocytosis type: leukemoid reaction Qualified Code(s): D72.823 - Leukemoid reaction Is this a current diagnosis for this admission?: Yes Plan: Likely leukemoid reaction to the acute insult from the CVA and resultant inflammation (9) UTI (urinary tract infection) Qualifiers: Urinary tract infection type: site unspecified Is this a current diagnosis for this admission?: Yes Plan: Ruled out by culture. - Time Time Spent with patient: 25-34 minutes Medications reviewed and adjusted accordingly: Yes
[2017-05-25] MEDS: HEPARIN SODIUM,PORCINE/D5W 25,000 UNIT/250 ML RTUINJ IV PRN (16:51)
--- NOTE | 2017-05-25 23:15 | EKG REPORT ---
SEVERITY:- ABNORMAL ECG - SINUS RHYTHM ABNRM R PROG, CONSIDER ASMI OR LEAD PLACEMENT BORDERLINE T ABNORMALITIES, ANTERIOR LEADS : Confirmed by: Jose Cruz Hodges MD 25-May-2017 23:14:28
[2017-05-26] MEDS: POTASSI CL 20 MEQ/D5-1/2NS 1L 1,000 ML IV PRN ×2 (01:39→15:29)
[2017-05-26] MEDS: METOPROLOL TARTRATE PF/INJ 5 MG/5 ML SDV IV SCH ×3 (05:09→18:15)
[2017-05-26] MEDS: PANTOPRAZOLE SODIUM 40 MG VIAL IV SCH ×2 (05:09→18:14)
[2017-05-26 07:57] LABS: ANION GAP 7 (5-19); BLOOD UREA NITROGEN 13 mg/dL (7-20); CALCIUM 8.2 mg/dL (8.4-10.2); CARBON DIOXIDE 27 mmol/L (22-30); CHLORIDE 108 mmol/L (98-107); CREATININE RESULT 0.49 mg/dL (0.52-1.25); GLUCOSE 111 mg/dL (75-110); POTASSIUM 4.1 mmol/L (3.6-5.0)
[2017-05-26] MEDS ORDERED: PANTOPRAZOLE SODIUM 40 MG VIAL IV SCH (10:00)
[2017-05-26] MEDS: ASPIRIN 300 MG SUPP, RECTAL PR SCH (13:28)
--- NOTE | 2017-05-26 13:59 | PDOC PROGRESS REPORT ---
Subjective Progress Note for:: 05/26/17 Subjective:: This is a follow-up visit for subacute stroke and atrial fibrillation. The patient has had improvement in her speech from admission but not much more since. Reason For Visit: SUBACUTE STROKE,AFIB WITH RVR Physical Exam Vital Signs: Temp Pulse Resp BP Pulse Ox 97.4 F 55 L 16 100/87 H 100 05/26/17 08:02 05/26/17 08:02 05/26/17 08:02 05/26/17 08:02 05/26/17 08:02 Intake & Output 05/25/17 05/26/17 05/27/17 06:59 06:59 06:59 Intake Total 1915 1958 Output Total 570 700 Balance 1345 1258 Weight 82.3 kg 83.2 kg GENERAL: This is a well-developed, well-nourished appearing elderly white female resting in bed currently in no acute distress. HEART: Irregular rate and rhythm. No murmurs rubs or gallops. LUNGS: Diminished at the bases with occasional crackle heard in the right lower base and equal rise and fall of the chest. ABDOMEN: Soft, nontender, nondistended with normoactive bowel sounds EXTREMETIES: No clubbing, cyanosis or edema of the lower extremities. 2+ peripheral pulses bilaterally. NEURO: Awake, alert and oriented 3. Speech is unchanged from Monday. Overall it is much better than admission. Results Laboratory Results: 05/25/17 05:53 05/26/17 07:03 05/26/17 07:03 Sodium 142.0 Potassium 4.1 Chloride 108 H Carbon Dioxide 27 Anion Gap 7 BUN 13 Creatinine 0.49 L Est GFR ( Amer) > 60 Est GFR (Non-Af Amer) > 60 Glucose 111 H Calcium 8.2 L 05/25/17 05:53 Creatine Kinase 210 H Impressions: Carotid Doppler Study 05/23/17 00:00 IMPRESSION: NO HEMODYNAMICALLY SIGNIFICANT STENOSIS. Head CT 05/23/17 09:46 IMPRESSION: 1. Right MCA distribution infarct. Given how well defined this is , likely subacute. EVIDENCE OF ACUTE STROKE: NO. Pertinent positive or negative findings of the imaging study reported as a CRITICAL EXAM to Amy at10:11 on 05/23/2017. Category of Critical Exam: Stroke alert Pelvis X-Ray 05/23/17 09:53 IMPRESSION: NEGATIVE STUDY OF THE PELVIS. Humerus X-Ray 05/23/17 11:01 IMPRESSION: No fracture. Subcutaneous edema. No soft tissue gas or radiopaque foreign body Forearm X-Ray 05/23/17 11:04 IMPRESSION: Diffuse forearm soft tissue swelling. No fracture of the radius or ulna Question nondisplaced fracture versus nutrient groove midshaft 5th metacarpal Chest X-Ray 05/24/17 00:00 IMPRESSION: NO SIGNIFICANT RADIOGRAPHIC FINDING IN THE CHEST. Upper Extremity CT 05/24/17 00:00 IMPRESSION: NO ACUTE OR SIGNIFICANT FINDING. Assessment & Plan - Diagnosis (1) Stroke Qualifiers: Precerebral and cerebral artery: middle cerebral artery Laterality of affected vessel: right Is this a current diagnosis for this admission?: Yes Plan: Continue daily pr asa until cleared by speech. begin statin once able. Continue heparin drip in preparation for anticoagulation. Once able to take p.o. stop heparin drip and begin Xarelto. Discontinue permissive hypertension. Speech/PT/OT following (2) Paroxysmal atrial fibrillation Is this a current diagnosis for this admission?: Yes Plan: Rate control and anticoagulation. patient was not fall risk prior to this episode. Begin Xarelto when able. (3) Dyslipidemia Is this a current diagnosis for this admission?: Yes Plan: Lipid panel looks good actually. Begin statin as part of stroke management when able. (4) HTN (hypertension), benign Is this a current diagnosis for this admission?: Yes Plan: Continue IV metoprolol. (5) UTI (urinary tract infection) Qualifiers: Urinary tract infection type: site unspecified Is this a current diagnosis for this admission?: Yes Plan: Possible urinary tract infection. This has been ruled out. Cultures are negative. (6) Rhabdomyolysis Qualifiers: Rhabdomyolysis type: traumatic Encounter type: subsequent encounter Qualified Code(s): T79.6XXD - Traumatic ischemia of muscle, subsequent encounter Is this a current diagnosis for this admission?: Yes Plan: Resolved. (7) Hypernatremia Is this a current diagnosis for this admission?: Yes Plan: Resolved (8) Leukocytosis Qualifiers: Leukocytosis type: leukemoid reaction Qualified Code(s): D72.823 - Leukemoid reaction Is this a current diagnosis for this admission?: Yes Plan: Likely secondary from being down. I believe this is reactive. White blood cell count is improved. Cultures are negative to date resolved. (9) Arm edema Is this a current diagnosis for this admission?: Yes Plan: It is likely that the patient was laying on that side for several hours to days.. X-rays negative for fracture. Keep arm elevated. (10) Metacarpal bone fracture Qualifiers: Encounter type: initial encounter Metacarpal bone: fifth Fracture type: closed Metacarpal location: other portion of metacarpal Fracture alignment: nondisplaced Laterality: left Qualified Code(s): S62.397A - Other fracture of fifth metacarpal bone, left hand, initial encounter for closed fracture Is this a current diagnosis for this admission?: Yes Plan: This is been ruled out with CT. (11) Dysphasia Is this a current diagnosis for this admission?: Yes Plan: Secondary to MCA stroke. The patient has been n.p.o. since admission. Speech is following. If speech has recommendations to continue n.p.o. status then I will place a Dobbhoff tube and begin tube feeds. The patient is in agreement with this. It may be that ultimately the patient will need a PEG tube. Will await speech assessment today. Consult dietary for dysphasia education as well as enteral feeds in case needed. - Time Time Spent with patient: 15-24 minutes
[2017-05-26] MEDS ORDERED: PHARMACY COMMUNICATION ORDER MC NR (19:00)
--- NOTE | 2017-05-26 21:24 | RADIOLOGY REPORT (SQ) ---
EXAM DESCRIPTION: KUB/ABDOMEN (SINGLE VIEW) COMPLETED DATE/TIME: 05/26/2017 9:13 pm REASON FOR STUDY: Check Placement of NG Tube COMPARISON: None. NUMBER OF VIEWS: One view. TECHNIQUE: Supine radiographic image of the abdomen acquired. LIMITATIONS: Pelvis incompletely included in the field of view FINDINGS: BOWEL GAS PATTERN: Nonspecific bowel gas pattern with air in mildly distended small bowel loops. Air in the stomach fundus. CALCIFICATIONS: No suspicious calcifications. SOFT TISSUES: No gross mass or suggestion of organomegaly. HARDWARE: A nasogastric tube is present with the tip and side port in the stomach. BONES: No acute fracture. No worrisome bone lesions. OTHER: Lung bases are clear IMPRESSION: Nonspecific bowel gas pattern. Nasogastric tube tip and side port in the stomach TECHNICAL DOCUMENTATION: JOB ID: [id number] [employer]- All Rights Reserved
[2017-05-27] MEDS: METOPROLOL TARTRATE PF/INJ 5 MG/5 ML SDV IV SCH ×4 (00:30→18:56)
[2017-05-27] MEDS: PANTOPRAZOLE SODIUM 40 MG VIAL IV SCH ×2 (06:31→18:56)
[2017-05-27] MEDS: POTASSI CL 20 MEQ/D5-1/2NS 1L 1,000 ML IV PRN ×2 (06:31→20:38)
[2017-05-27] MEDS: ASPIRIN 300 MG SUPP, RECTAL PR SCH (10:45)
--- NOTE | 2017-05-27 17:35 | PDOC PROGRESS REPORT ---
Subjective Progress Note for:: 05/27/17 Subjective:: Nursing states that pt's speak is worsening. Reason For Visit: SUBACUTE STROKE,AFIB WITH RVR Physical Exam Vital Signs: Temp Pulse Resp BP Pulse Ox 97.5 F 57 L 18 141/67 H 100 05/27/17 11:57 05/27/17 11:57 05/27/17 11:57 05/27/17 11:57 05/27/17 11:57 Intake & Output 05/26/17 05/27/17 05/28/17 06:59 06:59 06:59 Intake Total 1957 1989 Output Total 700 1100 Balance 1258 890 Weight 83.2 kg 84.2 kg General appearance: PRESENT: no acute distress, well-developed, well-nourished, other - NGT in place Head exam: PRESENT: atraumatic, normocephalic Eye exam: PRESENT: conjunctiva pink, EOMI, PERRLA. ABSENT: scleral icterus Ear exam: PRESENT: bleeding Mouth exam: PRESENT: moist, tongue midline Neck exam: ABSENT: carotid bruit, JVD, lymphadenopathy, thyromegaly Respiratory exam: PRESENT: clear to auscultation sarbjit. ABSENT: rales, rhonchi, wheezes Cardiovascular exam: PRESENT: RRR. ABSENT: diastolic murmur, rubs, systolic murmur Pulses: PRESENT: normal dorsalis pedis pul Vascular exam: PRESENT: normal capillary refill GI/Abdominal exam: PRESENT: normal bowel sounds, soft. ABSENT: distended, guarding, mass, organolmegaly, rebound, tenderness Rectal exam: PRESENT: deferred Extremities exam: PRESENT: full ROM. ABSENT: calf tenderness, clubbing, pedal edema Neurological exam: PRESENT: alert, altered, awake, oriented to person, oriented to time Psychiatric exam: PRESENT: appropriate affect, normal mood. ABSENT: homicidal ideation, suicidal ideation Skin exam: PRESENT: dry, intact, warm. ABSENT: cyanosis, rash Results Laboratory Results: 05/25/17 05:53 05/26/17 07:03 05/25/17 05:53 Creatine Kinase 210 H Impressions: Carotid Doppler Study 05/23/17 00:00 IMPRESSION: NO HEMODYNAMICALLY SIGNIFICANT STENOSIS. Head CT 05/23/17 09:46 IMPRESSION: 1. Right MCA distribution infarct. Given how well defined this is , likely subacute. EVIDENCE OF ACUTE STROKE: NO. Pertinent positive or negative findings of the imaging study reported as a CRITICAL EXAM to Amy at10:11 on 05/23/2017. Category of Critical Exam: Stroke alert Pelvis X-Ray 05/23/17 09:53 IMPRESSION: NEGATIVE STUDY OF THE PELVIS. Humerus X-Ray 05/23/17 11:01 IMPRESSION: No fracture. Subcutaneous edema. No soft tissue gas or radiopaque foreign body Forearm X-Ray 05/23/17 11:04 IMPRESSION: Diffuse forearm soft tissue swelling. No fracture of the radius or ulna Question nondisplaced fracture versus nutrient groove midshaft 5th metacarpal Chest X-Ray 05/24/17 00:00 IMPRESSION: NO SIGNIFICANT RADIOGRAPHIC FINDING IN THE CHEST. Upper Extremity CT 05/24/17 00:00 IMPRESSION: NO ACUTE OR SIGNIFICANT FINDING. KUB X-Ray 05/26/17 18:58 IMPRESSION: Nonspecific bowel gas pattern. Nasogastric tube tip and side port in the stomach Assessment & Plan - Diagnosis (1) Acute right arterial ischemic stroke, MCA (middle cerebral artery) Is this a current diagnosis for this admission?: Yes Plan: Will continue current treatment. Pt on heparin drip. Pt being seen by Speech/ PT/OT. (2) Dyslipidemia Is this a current diagnosis for this admission?: Yes Plan: Will continue current. (3) Dysphasia Is this a current diagnosis for this admission?: Yes Plan: Pt with NGT in place. (4) Rhabdomyolysis Qualifiers: Rhabdomyolysis type: traumatic Encounter type: subsequent encounter Qualified Code(s): T79.6XXD - Traumatic ischemia of muscle, subsequent encounter Is this a current diagnosis for this admission?: Yes Plan: Resolved. (5) UTI (urinary tract infection) Qualifiers: Urinary tract infection type: site unspecified Is this a current diagnosis for this admission?: Yes Plan: Ruled out. (6) Paroxysmal atrial fibrillation Is this a current diagnosis for this admission?: Yes Plan: Will continue current. (7) HTN (hypertension), benign Is this a current diagnosis for this admission?: Yes Plan: continue IV metoprolol. (8) Nutrition impaired due to imbalance of nutrients Is this a current diagnosis for this admission?: Yes Plan: Jevity 1.2. - Time Time Spent with patient: 15-24 minutes
[2017-05-27] MEDS ORDERED: PHENOL/SODIUM PHENOLATE 100 SPRAY/177 ML BOTTLE PO PRN (20:19)
[2017-05-28] MEDS: METOPROLOL TARTRATE PF/INJ 5 MG/5 ML SDV IV SCH ×4 (01:09→19:39)
[2017-05-28] MEDS ORDERED: PHENOL/SODIUM PHENOLATE 100 SPRAY/177 ML BOTTLE ONE (02:43)
[2017-05-28] MEDS: HEPARIN SODIUM,PORCINE/D5W 25,000 UNIT/250 ML RTUINJ IV PRN (04:39)
[2017-05-28] MEDS: PANTOPRAZOLE SODIUM 40 MG VIAL IV SCH ×2 (06:21→19:39)
[2017-05-28 07:02] LABS: ABSOLUTE BASOPHILS # (AUTO) 0.1 10^3/uL (0.0-0.2); ABSOLUTE EOSINOPHILS # (AUTO) 0.3 10^3/uL (0.0-0.6); ABSOLUTE LYMPHOCYTES (AUTO) 1.3 10^3/uL (0.5-4.7); ABSOLUTE MONOCYTES (AUTO) 1.2 10^3/uL (0.1-1.4); ABSOLUTE NEUT (AUTO) 9.2 10^3/uL (1.7-8.2); BASOPHILS % (AUTO) 0.5 % (0-2); EOSINOPHILS % (AUTO) 2.2 % (0-6); HEMATOCRIT 37.5 % (36.0-47.0); HEMOGLOBIN 12.8 g/dL (12.0-15.5); HGB HCT DIFFERENCE 0.9; LYMPHOCYTES % (AUTO) 10.9 % (13-45); MEAN CORPUSCULAR HEMOGLOBIN 29.9 pg (27.0-33.4); MEAN CORPUSCULAR HGB CONC 34.1 g/dL (32.0-36.0); MEAN CORPUSCULAR VOLUME 88 fl (80-97); MONOCYTES % (AUTO) 9.7 % (3-13); RED BLOOD COUNT 4.27 10^6/uL (3.72-5.28); RED CELL DISTRIBUTION WIDTH 12.7 % (11.5-14.0); SEGMENTED NEUTROPHILS % (AUTO) 76.7 % (42-78); WHITE BLOOD COUNT 11.9 10^3/uL (4.0-10.5)
[2017-05-28 07:18] LABS: ANION GAP 8 (5-19); BLOOD UREA NITROGEN 6 mg/dL (7-20); CALCIUM 8.9 mg/dL (8.4-10.2); CARBON DIOXIDE 27 mmol/L (22-30); CHLORIDE 103 mmol/L (98-107); CREATININE RESULT 0.47 mg/dL (0.52-1.25); GLUCOSE 131 mg/dL (75-110); POTASSIUM 4.3 mmol/L (3.6-5.0); SODIUM 137.9 mmol/L (137-145)
[2017-05-28] MEDS: HEPARIN SOD (PORCINE) 1,000 UNIT/ML 10 ML VIAL IV PRN (08:01)
--- NOTE | 2017-05-28 09:13 | EKG REPORT ---
SEVERITY:- ABNORMAL ECG - ATRIAL FIBRILLATION / FLUTTER. : Confirmed by: Jose Cruz Hodges MD 28-May-2017 09:12:41
--- NOTE | 2017-05-28 11:25 | PDOC PROGRESS REPORT ---
Subjective Progress Note for:: 05/28/17 Subjective:: This is a follow-up visit for subacute stroke and atrial fibrillation. The patient has had improvement in her speech from admission but not much more since. Her nurse concerned her speech is slurred and overall worse than it was when I last saw her on Monday. Her nurse also notes that her drooling has increased and that the patient is using her Yankauer more. The patient does confirm that she is drooling more. Reason For Visit: SUBACUTE STROKE,AFIB WITH RVR Physical Exam Vital Signs: Temp Pulse Resp BP Pulse Ox 98.4 F 83 22 H 116/76 100 05/28/17 04:56 05/28/17 08:03 05/28/17 08:03 05/28/17 08:03 05/28/17 08:03 Intake & Output 05/27/17 05/28/17 05/29/17 06:59 06:59 06:59 Intake Total 1989 2091 25 Output Total 1100 4000 Balance 890 -1908 25 Weight 84.2 kg 79.5 kg GENERAL: This is a well-developed, well-nourished appearing elderly white female resting in bed currently in no acute distress. HEART: Irregular rate and rhythm. No murmurs rubs or gallops. LUNGS: Diminished at the bases and equal rise and fall of the chest. ABDOMEN: Soft, nontender, nondistended with normoactive bowel sounds EXTREMETIES: No clubbing, cyanosis or edema of the lower extremities. 2+ peripheral pulses bilaterally. NEURO: Awake, alert and oriented 3. Her speech seems unchanged from when I last saw her on Monday. There was no drooling at the time that I was in the room. The patient does have her Yankauer close at hand. Results Laboratory Results: 05/28/17 05:40 05/28/17 05:40 05/28/17 05/28/17 05:40 05:40 WBC 11.9 H RBC 4.27 Hgb 12.8 Hct 37.5 MCV 88 MCH 29.9 MCHC 34.1 RDW 12.7 Plt Count 280 Seg Neutrophils % 76.7 Lymphocytes % 10.9 L Monocytes % 9.7 Eosinophils % 2.2 Basophils % 0.5 Absolute Neutrophils 9.2 H Absolute Lymphocytes 1.3 Absolute Monocytes 1.2 Absolute Eosinophils 0.3 Absolute Basophils 0.1 Sodium 137.9 Potassium 4.3 Chloride 103 Carbon Dioxide 27 Anion Gap 8 BUN 6 L Creatinine 0.47 L Est GFR ( Amer) > 60 Est GFR (Non-Af Amer) > 60 Glucose 131 H Calcium 8.9 05/25/17 05:53 Creatine Kinase 210 H Impressions: Carotid Doppler Study 05/23/17 00:00 IMPRESSION: NO HEMODYNAMICALLY SIGNIFICANT STENOSIS. Head CT 05/23/17 09:46 IMPRESSION: 1. Right MCA distribution infarct. Given how well defined this is , likely subacute. EVIDENCE OF ACUTE STROKE: NO. Pertinent positive or negative findings of the imaging study reported as a CRITICAL EXAM to Amy at10:11 on 05/23/2017. Category of Critical Exam: Stroke alert Pelvis X-Ray 05/23/17 09:53 IMPRESSION: NEGATIVE STUDY OF THE PELVIS. Humerus X-Ray 05/23/17 11:01 IMPRESSION: No fracture. Subcutaneous edema. No soft tissue gas or radiopaque foreign body Forearm X-Ray 05/23/17 11:04 IMPRESSION: Diffuse forearm soft tissue swelling. No fracture of the radius or ulna Question nondisplaced fracture versus nutrient groove midshaft 5th metacarpal Chest X-Ray 05/24/17 00:00 IMPRESSION: NO SIGNIFICANT RADIOGRAPHIC FINDING IN THE CHEST. Upper Extremity CT 05/24/17 00:00 IMPRESSION: NO ACUTE OR SIGNIFICANT FINDING. KUB X-Ray 05/26/17 18:58 IMPRESSION: Nonspecific bowel gas pattern. Nasogastric tube tip and side port in the stomach Assessment & Plan - Diagnosis (1) Stroke Qualifiers: Precerebral and cerebral artery: middle cerebral artery Laterality of affected vessel: right Is this a current diagnosis for this admission?: Yes Plan: Right MCA stroke with left hemiparesis. Change aspirin to per NG tube. begin statin with NG tube.. Continue heparin drip in preparation for anticoagulation. Once able to take p.o. stop heparin drip and begin Xarelto. Speech/PT/OT following (2) Paroxysmal atrial fibrillation Is this a current diagnosis for this admission?: Yes Plan: Rate control and anticoagulation. patient was not fall risk prior to this episode. Begin Xarelto with NG tube feeds. (3) Dyslipidemia Is this a current diagnosis for this admission?: Yes Plan: Lipid panel looks good actually. Begin statin with NG tube in place. (4) HTN (hypertension), benign Is this a current diagnosis for this admission?: Yes Plan: Continue IV metoprolol. (5) UTI (urinary tract infection) Qualifiers: Urinary tract infection type: site unspecified Is this a current diagnosis for this admission?: Yes Plan: Possible urinary tract infection. This has been ruled out. Cultures are negative. (6) Rhabdomyolysis Qualifiers: Rhabdomyolysis type: traumatic Encounter type: subsequent encounter Qualified Code(s): T79.6XXD - Traumatic ischemia of muscle, subsequent encounter Is this a current diagnosis for this admission?: Yes Plan: Resolved. (7) Hypernatremia Is this a current diagnosis for this admission?: Yes Plan: Resolved (8) Leukocytosis Qualifiers: Leukocytosis type: leukemoid reaction Qualified Code(s): D72.823 - Leukemoid reaction Is this a current diagnosis for this admission?: Yes Plan: Likely secondary from being down. I believe this is reactive. White blood cell count is improved. Cultures are negative to date resolved. (9) Arm edema Is this a current diagnosis for this admission?: Yes Plan: It is likely that the patient was laying on that side for several hours to days.. X-rays negative for fracture. Keep arm elevated. (10) Dysphasia Is this a current diagnosis for this admission?: Yes Plan: Secondary to MCA stroke. The patient has been n.p.o. since admission. Speech is following. NG tube is in and tube feeds are running with Jevity. If speech has recommendations to continue n.p.o. status then PEG tube should be considered for the intermediate term. Will hold off and let speech reassess tomorrow. I have discussed with the patient the potential for need for PEG and the patient is willing to accept the PEG if it means that she will be able to make it to rehab. - Time Time Spent with patient: 15-24 minutes
--- NOTE | 2017-05-28 12:16 | RADIOLOGY REPORT (SQ) ---
EXAM DESCRIPTION: CT HEAD WITHOUT COMPLETED DATE/TIME: 05/28/2017 12:05 pm REASON FOR STUDY: stroke with worsening symptoms COMPARISON: 05/23/2017 TECHNIQUE: Axial images acquired through the brain without intravenous contrast. Images reviewed wi th bone, brain and subdural windows. Images stored on PACS. All CT scanners at this facility use dose modulation, iterative reconstruction, and/or weight based d osing when appropriate to reduce radiation dose to as low as reasonably achievable (ALARA). [facility]: Dose Right [facility]: CareDose [facility]: Dose Right [facility]: Teradose 4D [facility]: [employer] RADIATION DOSE: mGy. LIMITATIONS: None. FINDINGS: Geographic low attenuation in the right MCA distribution not significantly changed. There is effacement of the sulci. No hemorrhage or significant mass effect. IMPRESSION: Subacute, nonhemorrhagic infarct right MCA territory. No significant change. EVIDENCE OF ACUTE STROKE: YES. RIGHT MCA COMMENT: Quality ID # [id number]: Final reports with documentation of one or more dose reduction techniques (e.g., Automated exposure control, adjustment of the mA and/or kV according to patient size, use of iterative reconstruction technique) TECHNICAL DOCUMENTATION: JOB ID: [id number] [employer]- All Rights Reserved
[2017-05-28] MEDS: POTASSI CL 20 MEQ/D5-1/2NS 1L 1,000 ML IV PRN (12:37)
[2017-05-28] MEDS: ASPIRIN 325 MG TABLET NG SCH (12:37)
[2017-05-28] MEDS ORDERED: SIMVASTATIN 10 MG TABLET PO SCH (22:00)
[2017-05-29] MEDS: METOPROLOL TARTRATE PF/INJ 5 MG/5 ML SDV IV SCH ×4 (01:13→18:14)
[2017-05-29] MEDS: POTASSI CL 20 MEQ/D5-1/2NS 1L 1,000 ML IV PRN ×2 (02:05→18:06)
[2017-05-29] MEDS: HEPARIN SODIUM,PORCINE/D5W 25,000 UNIT/250 ML RTUINJ IV PRN (03:14)
[2017-05-29] MEDS ORDERED: RIVAROXABAN 10 MG TABLET PO SCH (10:00)
[2017-05-29] MEDS ORDERED: DEXTROSE 40% GEL 15 GM TUBE NG PRN ×2 (10:30)
[2017-05-29] MEDS: ASPIRIN 325 MG TABLET NG SCH (10:51)
--- NOTE | 2017-05-29 17:38 | ST Inp Modified Barium Swallow ---
Medical Diagnosis - Medical Diagnoses Medical Diagnosis Description & ICD-10 Code(s): CVA, dysphagia ST Inpatient [facility] [place] - General Date: 05/29/17 Date of Onset: 05/23/17 - History History Obtained From: Other - EMR -: Medical Medications: Medications Reviewed Allergies: Refer to medical record - Subjective Current Nutritional Means: NG Current PO Diet: N/A (NPO), therapeutic trials - ice chips Current Symptoms: Coughing, Drooling, Spillage Pain: Patient reports, 0/5 - Objective Assessment: Upright, Left Lateral - Food Trials Food Trials Used: Thin liquids, Honey-thickened liquids, Pureed, Regular The Patient: Required Assist, fed by ST - Assessment Labial Function: Impaired - left sided weakness, anterior loss Lingual Function: Impaired Mandibular Function: Impaired - reduced opening of mouth Dentition: Partial Velo-Pharyngeal Function: Unremarkable Laryngeal Function: weak voicing - Pharyngeal Stage Initiation of Pharyngeal Stage: Delayed Reflex Delay Time (seconds): 7 Decreased Laryngeal Elevation: No Reduced Velo-Pharyngeal Closure: no Reduced Pressure Generation: No Reduced Tongue Base Retraction: Yes Pre-Swallowing Pooling in Valleculae: Moderate Pre-Swallowing Pooling in Pyriforms: Moderate Reduced Thyro-Hyiod Approximation: No Reduced Epiglottic Excursion: No Reduced Pharyngeal Peristalsis: No Post Swallow Residuals in Valleculae: Mild Post Swallow Residuals in Pyriforms: None Pahryngeal Stage Comments: Swallow is delayed, however, generally functional. Tongue pumping noted prior to swallow reflex initiation. Swallow became more delayed with additional trials. Some flash penetration seen x2, no aspiration. - Impression/Summary Laryngeal Penetration: Yes, Flash, during swallow - on thin liquid trial and residue of pudding trial Tracheal Aspiration: no Effective Compensatory Strategies: hard swallow Patient Presents With: Oral stage dysphagia, Pharyngeal stage dysph., Mild- Moderate - Recommendations Solid Diet Recommendations: Mechanical Soft Liquid Diet Recommendations: Thin Strict Aspitarion Precautions: Yes Dysphagia Therapy with CARD PROCESSING CLERK: Yes, Inpatient Recommended Techniques: Fully Upright During Meal, Small Bites and Sips Supervision: requires assistance - Time Total Time: 25 Total Timed Minutes: 25 Charge G Code? - - -: Yes ST F.L. Impairment Category - Rationale Based On Rationale Based On: Func. Asses. Tool Results - Swallowing Current G8996: CK 40-59% Impaired Goal G8997: CI 1-19% Impaired
--- NOTE | 2017-05-29 18:09 | PDOC PROGRESS REPORT ---
Subjective Progress Note for:: 05/29/17 Subjective:: This is a follow-up visit for subacute stroke and atrial fibrillation. The patient has had improvement in her speech from admission but not much more since. Repeat CT scan of the head did not show any further cerebral insults. The patient underwent a modified barium swallow study today. I was contacted by speech therapy who informed me that they felt the patient could transition to thin liquids and soft foods. They were very specific and that the patient could not have meats but only soft fruits and sides such as mashed potatoes. When I went to see the patient apparently she had chicken as well as mac & cheese. She feels better now that she has had some real food. Dietary has also seen her and added Ensure to her diet. Reason For Visit: SUBACUTE STROKE,AFIB WITH RVR Physical Exam Vital Signs: Temp Pulse Resp BP Pulse Ox 97.9 F 90 20 113/63 100 05/29/17 12:13 05/29/17 12:13 05/29/17 12:13 05/29/17 12:13 05/29/17 12:13 Intake & Output 05/28/17 05/29/17 05/30/17 06:59 06:59 06:59 Intake Total 2092 2632 Output Total 4000 2400 600 Balance -1908 232 -600 Weight 79.5 kg 80.6 kg GENERAL: This is a well-developed, well-nourished appearing elderly white female resting in bed currently in no acute distress. HEART: Irregular rate and rhythm. No murmurs rubs or gallops. LUNGS: Diminished at the bases and equal rise and fall of the chest. ABDOMEN: Soft, nontender, nondistended with normoactive bowel sounds. NG tube is still in place with Jevity running at 35 cc an hour. EXTREMETIES: No clubbing, cyanosis or edema of the lower extremities. 2+ peripheral pulses bilaterally. NEURO: Awake, alert and oriented 3. Her speech seems unchanged. Results Laboratory Results: 05/28/17 05:40 05/28/17 05:40 05/25/17 05:53 Creatine Kinase 210 H Impressions: Carotid Doppler Study 05/23/17 00:00 IMPRESSION: NO HEMODYNAMICALLY SIGNIFICANT STENOSIS. Pelvis X-Ray 05/23/17 09:53 IMPRESSION: NEGATIVE STUDY OF THE PELVIS. Humerus X-Ray 05/23/17 11:01 IMPRESSION: No fracture. Subcutaneous edema. No soft tissue gas or radiopaque foreign body Forearm X-Ray 05/23/17 11:04 IMPRESSION: Diffuse forearm soft tissue swelling. No fracture of the radius or ulna Question nondisplaced fracture versus nutrient groove midshaft 5th metacarpal Chest X-Ray 05/24/17 00:00 IMPRESSION: NO SIGNIFICANT RADIOGRAPHIC FINDING IN THE CHEST. Upper Extremity CT 05/24/17 00:00 IMPRESSION: NO ACUTE OR SIGNIFICANT FINDING. KUB X-Ray 05/26/17 18:58 IMPRESSION: Nonspecific bowel gas pattern. Nasogastric tube tip and side port in the stomach Head CT 05/28/17 00:00 IMPRESSION: Subacute, nonhemorrhagic infarct right MCA territory. No significant change. EVIDENCE OF ACUTE STROKE: YES. RIGHT MCA Assessment & Plan - Diagnosis (1) Stroke Qualifiers: Precerebral and cerebral artery: middle cerebral artery Laterality of affected vessel: right Is this a current diagnosis for this admission?: Yes Plan: Right MCA stroke with left hemiparesis. Change to oral aspirin. Change statin to oral. Heparin drip is off. Xarelto started today. Speech/PT/OT following (2) Paroxysmal atrial fibrillation Is this a current diagnosis for this admission?: Yes Plan: Rate control and anticoagulation. patient was not fall risk prior to this episode. Continue Xarelto (3) Dyslipidemia Is this a current diagnosis for this admission?: Yes Plan: Lipid panel looks good actually. Continue statin (4) HTN (hypertension), benign Is this a current diagnosis for this admission?: Yes Plan: Continue IV metoprolol as needed. Switch to p.o. antihypertensives. (5) UTI (urinary tract infection) Qualifiers: Urinary tract infection type: site unspecified Is this a current diagnosis for this admission?: Yes Plan: Possible urinary tract infection. This has been ruled out. Cultures are negative. (6) Rhabdomyolysis Qualifiers: Rhabdomyolysis type: traumatic Encounter type: subsequent encounter Qualified Code(s): T79.6XXD - Traumatic ischemia of muscle, subsequent encounter Is this a current diagnosis for this admission?: Yes Plan: Resolved. (7) Hypernatremia Is this a current diagnosis for this admission?: Yes Plan: Resolved (8) Leukocytosis Qualifiers: Leukocytosis type: leukemoid reaction Qualified Code(s): D72.823 - Leukemoid reaction Is this a current diagnosis for this admission?: Yes Plan: Likely secondary from being down. I believe this is reactive. White blood cell count is improved. Cultures are negative to date resolved. (9) Arm edema Is this a current diagnosis for this admission?: Yes Plan: It is likely that the patient was laying on that side for several hours to days.. X-rays negative for fracture. Keep arm elevated. (10) Dysphasia Is this a current diagnosis for this admission?: Yes Plan: Secondary to MCA stroke. The patient has been n.p.o. since admission. Speech is following. NG tube is in and tube feeds are running with Jevity. Discontinue NG tube and tube feeds. - Time Time Spent with patient: 25-34 minutes
[2017-05-29] MEDS: SIMVASTATIN 40 MG TABLET NG SCH (22:01)
[2017-05-30] MEDS: METOPROLOL TARTRATE PF/INJ 5 MG/5 ML SDV IV SCH ×5 (02:25→23:51)
[2017-05-30] MEDS: POTASSI CL 20 MEQ/D5-1/2NS 1L 1,000 ML IV PRN (06:10)
[2017-05-30] MEDS: RIVAROXABAN 10 MG TABLET NG SCH (09:30)
[2017-05-30] MEDS: ASPIRIN 325 MG TABLET NG SCH (09:30)
--- NOTE | 2017-05-30 15:48 | PDOC PROGRESS REPORT ---
Subjective Progress Note for:: 05/30/17 Subjective:: Patient wants to know when she can go home. Reason For Visit: SUBACUTE STROKE,AFIB WITH RVR Physical Exam Vital Signs: Temp Pulse Resp BP Pulse Ox 98.3 F 78 21 H 132/73 H 100 05/30/17 12:09 05/30/17 12:09 05/30/17 12:09 05/30/17 12:09 05/30/17 12:09 Intake & Output 05/29/17 05/30/17 05/31/17 06:59 06:59 06:59 Intake Total 2632 7990 414 Output Total 2400 2650 700 Balance 232 5340 -286 Weight 80.6 kg 80.9 kg General appearance: PRESENT: no acute distress Eye exam: PRESENT: conjunctiva pink. ABSENT: scleral icterus Mouth exam: PRESENT: moist, tongue midline Neck exam: ABSENT: JVD Respiratory exam: PRESENT: clear to auscultation sarbjit. ABSENT: rales, rhonchi, wheezes Cardiovascular exam: PRESENT: RRR. ABSENT: diastolic murmur, rubs, systolic murmur GI/Abdominal exam: PRESENT: normal bowel sounds, soft. ABSENT: distended, guarding, mass, organolmegaly, rebound, tenderness Extremities exam: ABSENT: calf tenderness, clubbing, pedal edema Neurological exam: PRESENT: alert, awake, oriented to person, oriented to place , oriented to time, oriented to situation, CN II-XII grossly intact, motor sensory deficit - Patient's strength is 3 out of 5 in the left upper and lower extremity. Psychiatric exam: PRESENT: appropriate affect Skin exam: PRESENT: dry, intact, warm. ABSENT: cyanosis, rash Results Laboratory Results: 05/28/17 05:40 05/28/17 05:40 05/25/17 05:53 Creatine Kinase 210 H Impressions: Carotid Doppler Study 05/23/17 00:00 IMPRESSION: NO HEMODYNAMICALLY SIGNIFICANT STENOSIS. Pelvis X-Ray 05/23/17 09:53 IMPRESSION: NEGATIVE STUDY OF THE PELVIS. Humerus X-Ray 05/23/17 11:01 IMPRESSION: No fracture. Subcutaneous edema. No soft tissue gas or radiopaque foreign body Forearm X-Ray 05/23/17 11:04 IMPRESSION: Diffuse forearm soft tissue swelling. No fracture of the radius or ulna Question nondisplaced fracture versus nutrient groove midshaft 5th metacarpal Chest X-Ray 05/24/17 00:00 IMPRESSION: NO SIGNIFICANT RADIOGRAPHIC FINDING IN THE CHEST. Upper Extremity CT 05/24/17 00:00 IMPRESSION: NO ACUTE OR SIGNIFICANT FINDING. KUB X-Ray 05/26/17 18:58 IMPRESSION: Nonspecific bowel gas pattern. Nasogastric tube tip and side port in the stomach Head CT 05/28/17 00:00 IMPRESSION: Subacute, nonhemorrhagic infarct right MCA territory. No significant change. EVIDENCE OF ACUTE STROKE: YES. RIGHT MCA Assessment & Plan - Diagnosis (1) Acute right arterial ischemic stroke, MCA (middle cerebral artery) Is this a current diagnosis for this admission?: Yes Plan: Continue with aspirin and statin. (2) Dyslipidemia Is this a current diagnosis for this admission?: Yes Plan: Continue with statin. (3) Paroxysmal atrial fibrillation Is this a current diagnosis for this admission?: Yes Plan: Continue with Xarelto. (4) HTN (hypertension), benign Is this a current diagnosis for this admission?: Yes Plan: Blood pressures currently stable without medications. (5) Rhabdomyolysis Qualifiers: Rhabdomyolysis type: traumatic Encounter type: subsequent encounter Qualified Code(s): T79.6XXD - Traumatic ischemia of muscle, subsequent encounter Is this a current diagnosis for this admission?: Yes Plan: Resolved - Time Time Spent with patient: 25-34 minutes - Inpatient Certification Medical Necessity: Need Close Monitoring Due to Risk of Patient Decompensation - Plan Summary Plan Summary: Patient will be discharged when a rehab bed becomes available.
[2017-05-30] MEDS: SIMVASTATIN 40 MG TABLET NG SCH (22:11)
[2017-05-31] MEDS: METOPROLOL TARTRATE PF/INJ 5 MG/5 ML SDV IV SCH ×4 (05:30→23:39)
[2017-05-31] MEDS: POTASSI CL 20 MEQ/D5-1/2NS 1L 1,000 ML IV PRN ×2 (06:12→21:39)
[2017-05-31 06:15] LABS: ABSOLUTE BASOPHILS # (AUTO) 0.1 10^3/uL (0.0-0.2); ABSOLUTE EOSINOPHILS # (AUTO) 0.4 10^3/uL (0.0-0.6); ABSOLUTE MONOCYTES (AUTO) 1.2 10^3/uL (0.1-1.4); BASOPHILS % (AUTO) 0.6 % (0-2)
[2017-05-31 06:21] LABS: ABSOLUTE LYMPHOCYTES (AUTO) 2.1 10^3/uL (0.5-4.7); ABSOLUTE NEUT (AUTO) 8.9 10^3/uL (1.7-8.2); EOSINOPHILS % (AUTO) 3.2 % (0-6); HEMATOCRIT 35.3 % (36.0-47.0); HGB HCT DIFFERENCE 0.7; LYMPHOCYTES % (AUTO) 16.5 % (13-45); MEAN CORPUSCULAR HEMOGLOBIN 30.1 pg (27.0-33.4); MEAN CORPUSCULAR VOLUME 89 fl (80-97); MONOCYTES % (AUTO) 9.8 % (3-13); RED BLOOD COUNT 3.98 10^6/uL (3.72-5.28); SEGMENTED NEUTROPHILS % (AUTO) 69.9 % (42-78); WHITE BLOOD COUNT 12.7 10^3/uL (4.0-10.5)
[2017-05-31 06:24] LABS: ANION GAP 9 (5-19); BLOOD UREA NITROGEN 10 mg/dL (7-20); CALCIUM 8.4 mg/dL (8.4-10.2); CARBON DIOXIDE 25 mmol/L (22-30); CHLORIDE 107 mmol/L (98-107); CREATININE RESULT 0.53 mg/dL (0.52-1.25); GLUCOSE 99 mg/dL (75-110); POTASSIUM 4.4 mmol/L (3.6-5.0); SODIUM 141.4 mmol/L (137-145)
[2017-05-31] MEDS: RIVAROXABAN 10 MG TABLET NG SCH (10:13)
[2017-05-31] MEDS: ASPIRIN 325 MG TABLET NG SCH (10:13)
--- NOTE | 2017-05-31 10:54 | PDOC PROGRESS REPORT ---
Subjective Progress Note for:: 05/31/17 Subjective:: Denies any complaints. Reason For Visit: SUBACUTE STROKE,AFIB WITH RVR Physical Exam Vital Signs: Temp Pulse Resp BP Pulse Ox 98.7 F 74 18 122/99 H 98 05/31/17 07:54 05/31/17 03:30 05/31/17 07:54 05/31/17 07:54 05/31/17 03:30 Intake & Output 05/30/17 05/31/17 06/01/17 06:59 06:59 06:59 Intake Total 7990 1966 Output Total 2650 2125 Balance 5340 -159 Weight 80.9 kg 79 kg General appearance: PRESENT: no acute distress Eye exam: PRESENT: conjunctiva pink. ABSENT: scleral icterus Mouth exam: PRESENT: moist, tongue midline Neck exam: ABSENT: JVD Respiratory exam: PRESENT: clear to auscultation sarbjit. ABSENT: rales, rhonchi, wheezes Cardiovascular exam: PRESENT: RRR. ABSENT: diastolic murmur, rubs, systolic murmur GI/Abdominal exam: PRESENT: normal bowel sounds, soft. ABSENT: distended, guarding, mass, organolmegaly, rebound, tenderness Extremities exam: ABSENT: calf tenderness, clubbing, pedal edema Neurological exam: PRESENT: alert, awake, oriented to person, oriented to place , oriented to time, oriented to situation, CN II-XII grossly intact, motor sensory deficit - Patient has left-sided weakness. Psychiatric exam: PRESENT: appropriate affect Skin exam: PRESENT: dry, intact, warm. ABSENT: cyanosis, rash Results Laboratory Results: 05/31/17 04:45 05/31/17 04:45 05/31/17 05/31/17 04:45 04:45 WBC 12.7 H RBC 3.98 Hgb 12.0 Hct 35.3 L MCV 89 MCH 30.1 MCHC 34.0 RDW 13.0 Plt Count 270 Seg Neutrophils % 69.9 Lymphocytes % 16.5 Monocytes % 9.8 Eosinophils % 3.2 Basophils % 0.6 Absolute Neutrophils 8.9 H Absolute Lymphocytes 2.1 Absolute Monocytes 1.2 Absolute Eosinophils 0.4 Absolute Basophils 0.1 Sodium 141.4 Potassium 4.4 Chloride 107 Carbon Dioxide 25 Anion Gap 9 BUN 10 Creatinine 0.53 Est GFR ( Amer) > 60 Est GFR (Non-Af Amer) > 60 Glucose 99 Calcium 8.4 05/25/17 05:53 Creatine Kinase 210 H Impressions: Carotid Doppler Study 05/23/17 00:00 IMPRESSION: NO HEMODYNAMICALLY SIGNIFICANT STENOSIS. Pelvis X-Ray 05/23/17 09:53 IMPRESSION: NEGATIVE STUDY OF THE PELVIS. Humerus X-Ray 05/23/17 11:01 IMPRESSION: No fracture. Subcutaneous edema. No soft tissue gas or radiopaque foreign body Forearm X-Ray 05/23/17 11:04 IMPRESSION: Diffuse forearm soft tissue swelling. No fracture of the radius or ulna Question nondisplaced fracture versus nutrient groove midshaft 5th metacarpal Chest X-Ray 05/24/17 00:00 IMPRESSION: NO SIGNIFICANT RADIOGRAPHIC FINDING IN THE CHEST. Upper Extremity CT 05/24/17 00:00 IMPRESSION: NO ACUTE OR SIGNIFICANT FINDING. KUB X-Ray 05/26/17 18:58 IMPRESSION: Nonspecific bowel gas pattern. Nasogastric tube tip and side port in the stomach Head CT 05/28/17 00:00 IMPRESSION: Subacute, nonhemorrhagic infarct right MCA territory. No significant change. EVIDENCE OF ACUTE STROKE: YES. RIGHT MCA Assessment & Plan - Diagnosis (1) Acute right arterial ischemic stroke, MCA (middle cerebral artery) Is this a current diagnosis for this admission?: Yes Plan: Continue with aspirin and statin. (2) Dyslipidemia Is this a current diagnosis for this admission?: Yes Plan: Continue with statin. (3) Paroxysmal atrial fibrillation Is this a current diagnosis for this admission?: Yes Plan: Continue with Xarelto. (4) HTN (hypertension), benign Is this a current diagnosis for this admission?: Yes Plan: Blood pressures currently stable without medications. (5) Rhabdomyolysis Qualifiers: Rhabdomyolysis type: traumatic Encounter type: subsequent encounter Qualified Code(s): T79.6XXD - Traumatic ischemia of muscle, subsequent encounter Is this a current diagnosis for this admission?: Yes Plan: Resolved - Time Time Spent with patient: 25-34 minutes - Inpatient Certification Medical Necessity: Need Close Monitoring Due to Risk of Patient Decompensation
[2017-05-31] MEDS: SIMVASTATIN 40 MG TABLET NG SCH (21:39)
[2017-06-01] MEDS: METOPROLOL TARTRATE PF/INJ 5 MG/5 ML SDV IV SCH ×4 (05:20→23:30)
[2017-06-01] MEDS: ASPIRIN 325 MG TABLET NG SCH (10:53)
[2017-06-01] MEDS: RIVAROXABAN 10 MG TABLET NG SCH (10:53)
--- NOTE | 2017-06-01 15:21 | PDOC PROGRESS REPORT ---
Subjective Progress Note for:: 06/01/17 Subjective:: Denies any complaints. Reason For Visit: SUBACUTE STROKE,AFIB WITH RVR Physical Exam Vital Signs: Temp Pulse Resp BP Pulse Ox 98.3 F 65 18 127/73 H 99 06/01/17 12:06 06/01/17 14:00 06/01/17 12:06 06/01/17 12:06 06/01/17 12:06 Intake & Output 05/31/17 06/01/17 06/02/17 06:59 06:59 06:59 Intake Total 1966 2911 Output Total 2125 2450 Balance -159 461 Weight 79 kg 78.4 kg General appearance: PRESENT: no acute distress Eye exam: PRESENT: conjunctiva pink. ABSENT: scleral icterus Mouth exam: PRESENT: moist, tongue midline Neck exam: ABSENT: JVD Respiratory exam: PRESENT: clear to auscultation sarbjit. ABSENT: rales, rhonchi, wheezes Cardiovascular exam: PRESENT: RRR. ABSENT: diastolic murmur, rubs, systolic murmur GI/Abdominal exam: PRESENT: normal bowel sounds, soft. ABSENT: distended, guarding, mass, organolmegaly, rebound, tenderness Extremities exam: ABSENT: calf tenderness, clubbing, pedal edema Neurological exam: PRESENT: alert, awake, oriented to person, oriented to place , oriented to time, oriented to situation, CN II-XII grossly intact, motor sensory deficit - Left-sided hemiparesis Psychiatric exam: PRESENT: appropriate affect Skin exam: PRESENT: dry, intact, warm. ABSENT: cyanosis, rash Results Laboratory Results: 05/31/17 04:45 05/31/17 04:45 05/25/17 05:53 Creatine Kinase 210 H Impressions: Carotid Doppler Study 05/23/17 00:00 IMPRESSION: NO HEMODYNAMICALLY SIGNIFICANT STENOSIS. Pelvis X-Ray 05/23/17 09:53 IMPRESSION: NEGATIVE STUDY OF THE PELVIS. Humerus X-Ray 05/23/17 11:01 IMPRESSION: No fracture. Subcutaneous edema. No soft tissue gas or radiopaque foreign body Forearm X-Ray 05/23/17 11:04 IMPRESSION: Diffuse forearm soft tissue swelling. No fracture of the radius or ulna Question nondisplaced fracture versus nutrient groove midshaft 5th metacarpal Chest X-Ray 05/24/17 00:00 IMPRESSION: NO SIGNIFICANT RADIOGRAPHIC FINDING IN THE CHEST. Upper Extremity CT 05/24/17 00:00 IMPRESSION: NO ACUTE OR SIGNIFICANT FINDING. KUB X-Ray 05/26/17 18:58 IMPRESSION: Nonspecific bowel gas pattern. Nasogastric tube tip and side port in the stomach Head CT 05/28/17 00:00 IMPRESSION: Subacute, nonhemorrhagic infarct right MCA territory. No significant change. EVIDENCE OF ACUTE STROKE: YES. RIGHT MCA Assessment & Plan - Diagnosis (1) Acute right arterial ischemic stroke, MCA (middle cerebral artery) Is this a current diagnosis for this admission?: Yes Plan: Continue with aspirin and statin. Will go to rehab on Monday. (2) Dyslipidemia Is this a current diagnosis for this admission?: Yes Plan: Continue with statin. (3) Paroxysmal atrial fibrillation Is this a current diagnosis for this admission?: Yes Plan: Continue with Xarelto. (4) HTN (hypertension), benign Is this a current diagnosis for this admission?: Yes Plan: Blood pressures currently stable without medications. (5) Rhabdomyolysis Qualifiers: Rhabdomyolysis type: traumatic Encounter type: subsequent encounter Qualified Code(s): T79.6XXD - Traumatic ischemia of muscle, subsequent encounter Is this a current diagnosis for this admission?: Yes Plan: Resolved - Time Time Spent with patient: 25-34 minutes - Inpatient Certification Medical Necessity: Need Close Monitoring Due to Risk of Patient Decompensation - Plan Summary Plan Summary: We will go to rehab on Monday afternoon.
[2017-06-01] MEDS: SIMVASTATIN 40 MG TABLET NG SCH (21:38)
[2017-06-02] MEDS: METOPROLOL TARTRATE PF/INJ 5 MG/5 ML SDV IV SCH ×2 (05:32→11:36)
[2017-06-02 06:42] LABS: ABSOLUTE BASOPHILS # (AUTO) 0.1 10^3/uL (0.0-0.2); ABSOLUTE EOSINOPHILS # (AUTO) 0.3 10^3/uL (0.0-0.6); ABSOLUTE LYMPHOCYTES (AUTO) 1.4 10^3/uL (0.5-4.7); ABSOLUTE MONOCYTES (AUTO) 1.2 10^3/uL (0.1-1.4); BASOPHILS % (AUTO) 0.7 % (0-2); EOSINOPHILS % (AUTO) 2.1 % (0-6); HEMOGLOBIN 12.4 g/dL (12.0-15.5); HGB HCT DIFFERENCE 0.2; MEAN CORPUSCULAR HEMOGLOBIN 29.6 pg (27.0-33.4); MEAN CORPUSCULAR HGB CONC 33.5 g/dL (32.0-36.0); MEAN CORPUSCULAR VOLUME 88 fl (80-97); MONOCYTES % (AUTO) 8.7 % (3-13); RED BLOOD COUNT 4.19 10^6/uL (3.72-5.28); RED CELL DISTRIBUTION WIDTH 13.3 % (11.5-14.0); SEGMENTED NEUTROPHILS % (AUTO) 78.5 % (42-78)
[2017-06-02 06:53] LABS: ANION GAP 8 (5-19); BLOOD UREA NITROGEN 9 mg/dL (7-20); CALCIUM 8.3 mg/dL (8.4-10.2); CARBON DIOXIDE 26 mmol/L (22-30); CHLORIDE 108 mmol/L (98-107); CREATININE RESULT 0.48 mg/dL (0.52-1.25); GLUCOSE 117 mg/dL (75-110); POTASSIUM 4.2 mmol/L (3.6-5.0); SODIUM 142.1 mmol/L (137-145)
[2017-06-02] MEDS: POTASSI CL 20 MEQ/D5-1/2NS 1L 1,000 ML IV PRN (08:07)
--- NOTE | 2017-06-02 09:46 | PDOC TRANSFER SUMMARY ---
General - Admit/Disc Date/PCP Admission Date/Primary Care Provider: 05/23/17 12:03 CLAIRE NICE MD Discharge Date: 06/02/17 - Discharge Diagnosis (1) Acute right arterial ischemic stroke, MCA (middle cerebral artery) Is this a current diagnosis for this admission?: Yes Summary: Patient is being treated with baby aspirin. She also has H fibrillation for which she is taking Xarelto. (2) Dyslipidemia Is this a current diagnosis for this admission?: Yes (3) Paroxysmal atrial fibrillation Is this a current diagnosis for this admission?: Yes (4) HTN (hypertension), benign Is this a current diagnosis for this admission?: Yes (5) Rhabdomyolysis Is this a current diagnosis for this admission?: Yes - Additional Information Resuscitation Status: Do Not Resuscitate Discharge Diet: Cardiac Discharge Activity: Balance Activity w/Rest Home Medications: Hydrochlorothiazide [Hydrodiuril 12.5 mg Capsule] 12.5 mg PO QAM 05/23/17 Losartan Potassium [Cozaar 100 mg Tablet] 100 mg PO DAILY 05/23/17 Aspirin 81 mg PO DAILY #30 tab.chew 06/02/17 Rivaroxaban [Xarelto 10 mg Tablet] 20 mg NG DAILY tablet 06/02/17 Simvastatin [Zocor 40 mg Tablet] 80 mg NG QHS tablet 06/02/17 History of Present Illness Admission Date/PCP: 05/23/17 12:03 CLAIRE NICE MD History of Present Illness: SANYA CHAU is a 76 year old white female with a past medical history of atrial fibrillation and hypertension who presents to the service after being found down for period of about 3 days. According to the patient's family they last saw her on Monday. The patient lives alone and usually walks well without any assistive devices. The patient does not have a history of regular falls. The patient's children called to check on her Monday but got no answer. They called Monday and Monday and still got no answer. They [address] and decided to go by the house this morning. Unfortunately, they found the patient in the bathroom laying on the ground. They noted that she had left- sided weakness and called the ambulance. The patient has no recollection of what happened. She does not know how she fell or ended up on the ground. The patient does have a history of atrial fibrillation. This was diagnosed in December 2013. At that time she was placed on Xarelto. She was on antihypertensives as well as simvastatin. She remained anticoagulated for about a year and a half. The patient states and her [id number] confirms that she was changed from Xarelto to Coumadin at one point. After the year and a half of anticoagulation she was taken off of her Coumadin. It is been 2 years since she has had any blood thinner. According to the patient and her [id number], the patient was "doing well". Therefore, the medication was stopped. Her last echocardiogram at this hospital was at the time of her initial diagnosis of A. fib. EF at that time was 60%. In the emergency room the patient was found to be in A. fib with RVR. Her rate was between 115 and 120. She been given 1 L of lactated Ringer's and was started on the second. Diltiazem was also given and CK was found to be at 1039. She was noted to have pressure sores on the left hip and a white count of 21. She was given a dose of Rocephin. She was not found to be in acute renal failure. X-rays of the pelvis and humerus were negative for fracture. The patient had a CT of the head done which showed right MCA subacute stroke. At the bedside the patient at one point does become emotional and tearful. She does not want to be a burden to her family. Hospital Course Hospital Course: 76-year-old female who has a history of H fibrillation. The patient was found down by her family. She has left-sided hemiparesis from a CVA. She has a history of age fibrillation but has not been on anticoagulation for the last 2 years. Patient also was in A. fib with RVR when she presented. Her heart rate has been controlled and she was started on Xarelto. Head CT did confirm a right MCA infarction. The patient is being continued on aspirin and Xarelto for the age for ablation with an acute CVA. The patient's echocardiogram did not show any evidence for mural thrombus. Carotid Doppler showed no significant stenosis. Patient was evaluated by speech therapy and it was recommended that she be on a soft diet. Also was noted to have rhabdomyolysis upon presentation after being down for an undetermined amount of time. This has resolved. Her renal function has remained normal. Patient is to be transferred to the [facility] for rehab with physical and occupational therapy as well as speech therapy. Physical Exam Vital Signs: Temp Pulse Resp BP Pulse Ox 98.0 F 69 20 117/73 98 06/02/17 07:26 06/02/17 07:26 06/02/17 07:26 06/02/17 07:26 06/02/17 07:26 Intake & Output 06/01/17 06/02/17 06/03/17 06:59 06:59 06:59 Intake Total 2911 2046 Output Total 5491 7590 Balance 461 -304 Weight 78.4 kg 81.7 kg General appearance: PRESENT: no acute distress Eye exam: PRESENT: conjunctiva pink. ABSENT: scleral icterus Mouth exam: PRESENT: moist, tongue midline Neck exam: ABSENT: JVD Respiratory exam: PRESENT: clear to auscultation sarbjit. ABSENT: rales, rhonchi, wheezes Cardiovascular exam: PRESENT: irregular rhythm. ABSENT: diastolic murmur, rubs , systolic murmur GI/Abdominal exam: PRESENT: normal bowel sounds, soft. ABSENT: distended, guarding, mass, organolmegaly, rebound, tenderness Extremities exam: ABSENT: calf tenderness, clubbing, pedal edema Neurological exam: PRESENT: alert, awake, oriented to person, oriented to place , oriented to time, oriented to situation, CN II-XII grossly intact, motor sensory deficit - Strength of 3 out of 5 in the left upper and lower extremity. Psychiatric exam: PRESENT: appropriate affect Skin exam: PRESENT: dry, intact, warm. ABSENT: cyanosis, rash Results Laboratory Results: 06/02/17 05:45 06/02/17 05:45 06/02/17 06/02/17 05:45 05:45 WBC 14.0 H RBC 4.19 Hgb 12.4 Hct 37.0 MCV 88 MCH 29.6 MCHC 33.5 RDW 13.3 Plt Count 259 Seg Neutrophils % 78.5 H Lymphocytes % 10.0 L Monocytes % 8.7 Eosinophils % 2.1 Basophils % 0.7 Absolute Neutrophils 11.0 H Absolute Lymphocytes 1.4 Absolute Monocytes 1.2 Absolute Eosinophils 0.3 Absolute Basophils 0.1 Sodium 142.1 Potassium 4.2 Chloride 108 H Carbon Dioxide 26 Anion Gap 8 BUN 9 Creatinine 0.48 L Est GFR ( Amer) > 60 Est GFR (Non-Af Amer) > 60 Glucose 117 H Calcium 8.3 L 05/25/17 05:53 Creatine Kinase 210 H Impressions: Carotid Doppler Study 05/23/17 00:00 IMPRESSION: NO HEMODYNAMICALLY SIGNIFICANT STENOSIS. Pelvis X-Ray 05/23/17 09:53 IMPRESSION: NEGATIVE STUDY OF THE PELVIS. Humerus X-Ray 05/23/17 11:01 IMPRESSION: No fracture. Subcutaneous edema. No soft tissue gas or radiopaque foreign body Forearm X-Ray 05/23/17 11:04 IMPRESSION: Diffuse forearm soft tissue swelling. No fracture of the radius or ulna Question nondisplaced fracture versus nutrient groove midshaft 5th metacarpal Chest X-Ray 05/24/17 00:00 IMPRESSION: NO SIGNIFICANT RADIOGRAPHIC FINDING IN THE CHEST. Upper Extremity CT 05/24/17 00:00 IMPRESSION: NO ACUTE OR SIGNIFICANT FINDING. KUB X-Ray 05/26/17 18:58 IMPRESSION: Nonspecific bowel gas pattern. Nasogastric tube tip and side port in the stomach Head CT 05/28/17 00:00 IMPRESSION: Subacute, nonhemorrhagic infarct right MCA territory. No significant change. EVIDENCE OF ACUTE STROKE: YES. RIGHT MCA Transfer Plan - Disposition Transfer Plan: Patient is to be transferred to the [facility] for rehabilitation. - Time Spent with Patient Time spent with patient: Greater than 30 Minutes Qualifiers PATEINT BEING DISCHARGED WITH ANY OF THE FOLLOWING DIAGNOSIS?: Stroke Stroke Pt being discharged on Anti-thrombolytic therapy?: Yes Stroke Pt being discharged on Anti-coagulation therapy?: Yes Stroke Pt being discharged on Statins?: Yes Plan Discharge Plan: Patient is to be discharged to the [facility]. Time Spent: Greater than 30 Minutes
[2017-06-02] MEDS: ASPIRIN 325 MG TABLET NG SCH (11:28)
[2017-06-02] MEDS: RIVAROXABAN 10 MG TABLET NG SCH (11:29)
[2017-06-02 14:10] VITALS: BP 116/82
== END 2017-06-02 14:17 | disposition short-term general hospital (02) | DRG 65 ==
LOC: ER 09:10 → EH 12:03 → 3S 14:28
PROVIDERS: ADMIT Hospitalist; ATTEND Hospitalist
DX: I63.412 Cerebral infarction due to embolism of left middle cerebral artery (principal); N39.0 Urinary tract infection, site not specified; M62.82 Rhabdomyolysis; E87.0 Hyperosmolality and hypernatremia; I69.354 Hemiplegia and hemiparesis following cerebral infarction affecting left non-dominant side; Z66 Do not resuscitate; R47.02 Dysphasia; E78.5 Hyperlipidemia, unspecified; I10 Essential (primary) hypertension; E86.0 Dehydration; I48.0 Paroxysmal atrial fibrillation; S62.397A Other fracture of fifth metacarpal bone, left hand, initial encounter for closed fracture; Z60.2 Problems related to living alone; Z87.891 Personal history of nicotine dependence
CPT/HCPCS: 36415; 70450; 71010; 71020; 72170; 74000; 74230; 80048; 80053; 80061; 81001; 82550; 82553; 82803; 82962; 83605; 83735; 84443; 84484; 85025; 85610; 85730; 87040; 87086; 93005; 93010; 93306; 93880; G8978-GP; G8979-GP; G8987-GO; G8988-GO; G8996-GN; G8997-GN; J0696; J1644; J2270; J2405; J3480; J3490; J7120; S0164

== ENCOUNTER 2017-09-13 10:31 | Emergency (ER) | payer MEDICARE, OTHER ==
--- NOTE | 2017-09-13 11:01 | ER Document Report ---
ED Medical Screen (RME) - General Chief Complaint: Headache Stated Complaint: HEADACHE Time Seen by Provider: 09/13/17 11:00 Notes: Patient states she had a recent stroke. She states she noticed this morning that she was drooling but she has not had trouble speaking or swallowing. She states she has not noticed any other weakness or numbness but she is having headache.. She states she is concerned she may have had another stroke because she is also having a headache. TRAVEL OUTSIDE OF THE [place] IN LAST 30 DAYS: No - Related Data Allergies/Adverse Reactions: acetaminophen [From Percocet] Allergy (Verified 05/23/17 11:19) oxycodone [From Percocet] Allergy (Verified 05/23/17 11:19) Past Medical History - Social History Frequency of alcohol use: None Drug Abuse: None - Past Medical History Cardiac Medical History: Reports: Hx Atrial Fibrillation, Hx Hypercholesterolemia, Hx Hypertension - medicated Denies: Hx Heart Attack Pulmonary Medical History: Denies: Hx Asthma, Hx Tuberculosis Neurological Medical History: Reports: Hx Seizures - 40-50 years ago. Denies: Hx Cerebrovascular Accident Renal/ Medical History: Denies: Hx Peritoneal Dialysis GI Medical History: Reports: Hx Hepatitis - 40years ago. 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 Denies: Hx Hysterectomy, Hx Mastectomy, Hx Open Heart Surgery, Hx Pacemaker - Immunizations History of Influenza Vaccine for 03/2017 - 08/2017 Season: Yes Influenza Administration Date for 03/2017 - 08/2017 Season: 03/26/17 Physical Exam - Vital signs Vitals: Temp Pulse Resp BP Pulse Ox 98.6 F 57 L 20 150/72 H 98 09/13/17 10:39 09/13/17 10:39 09/13/17 10:39 09/13/17 10:39 09/13/17 10:39 Course - Vital Signs Vital signs: Temp Pulse Resp BP Pulse Ox 98.6 F 57 L 20 150/72 H 98 09/13/17 10:39 09/13/17 10:39 09/13/17 10:39 09/13/17 10:39 09/13/17 10:39
--- NOTE | 2017-09-13 11:18 | RADIOLOGY REPORT (SQ) ---
EXAM DESCRIPTION: CT HEAD WITHOUT COMPLETED DATE/TIME: 09/13/2017 11:07 am REASON FOR STUDY: drooling COMPARISON: CT brain 05/28/2017, 05/23/2017 TECHNIQUE: Axial images acquired through the brain without intravenous contrast. Images reviewed wi th bone, brain and subdural windows. Images stored on PACS. All CT scanners at this facility use dose modulation, iterative reconstruction, and/or weight based d osing when appropriate to reduce radiation dose to as low as reasonably achievable (ALARA). [facility]: Dose Right [facility]: CareDose [facility]: Dose Right [facility]: Teradose 4D [facility]: Footmarks RADIATION DOSE: 64.6 mGy. LIMITATIONS: Motion artifact FINDINGS: Motion artifact throughout the study. There is an old right MCA distribution small to moderate-sized chronic infarct. No gross CT evidence of large territory ischemic change, acute intracranial hemorrhage, mass effect, or midline shift. Calvarium, sinuses, mastoids unremarkable IMPRESSION: Old right MCA distribution small to moderate size chronic appearing infarct. Motion artifact. No gross acute changes. EVIDENCE OF ACUTE STROKE: NO. COMMENT: Quality ID # [id number]: Final reports with documentation of one or more dose reduction techniques (e.g., Automated exposure control, adjustment of the mA and/or kV according to patient size, use of iterative reconstruction technique) TECHNICAL DOCUMENTATION: JOB ID: [id number] [email or web address]- All Rights Reserved Reading location - IP/workstation name: [facility]
--- NOTE | 2017-09-13 11:20 | ER Document Report ---
ED Headache - General Chief Complaint: Headache Stated Complaint: HEADACHE Time Seen by Provider: 09/13/17 11:00 Notes: The patient is a 77-year-old female, past medical history A. 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 She has had this over the past week and it goes away with Tylenol, but it returns. She is concerned that she is now having another stroke. On arrival to the ER, she is not having a headache or any other symptoms. She denies any new weakness, numbness, tingling, difficulty swallowing, blurry vision, neck pain, stiffness, chest pain, shortness of breath , ataxia, rash or syncope. TRAVEL OUTSIDE OF THE [place] IN LAST 30 DAYS: No - Related Data Allergies/Adverse Reactions: acetaminophen [From Percocet] Allergy (Verified 05/23/17 11:19) oxycodone [From Percocet] Allergy (Verified 05/23/17 11:19) Past Medical History - General Information source: Patient - Social History Smoking Status: Never Smoker Frequency of alcohol use: None Drug Abuse: None Family History: Hypertension Patient has suicidal ideation: No Patient has homicidal ideation: No - Past Medical History Cardiac Medical History: Reports: Hx Atrial Fibrillation, Hx Hypercholesterolemia, Hx Hypertension - medicated Denies: Hx Heart Attack Pulmonary Medical History: Denies: Hx Asthma, Hx Tuberculosis Neurological Medical History: Reports: Hx Seizures - 40-50 years ago. Denies: Hx Cerebrovascular Accident Renal/ Medical History: Denies: Hx Peritoneal Dialysis GI Medical History: Reports: Hx Hepatitis - 40years ago. 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 Denies: Hx Hysterectomy, Hx Mastectomy, Hx Open Heart Surgery, Hx Pacemaker - Immunizations Hx Pneumococcal Vaccination: 06/26/10 Review of Systems - Review of Systems Notes: REVIEW OF SYSTEMS: CONSTITUTIONAL: -fevers, -chills EENT: -eye pain, -difficulty swallowing, -nasal congestion CARDIOVASCULAR: -chest pain, -syncope. RESPIRATORY: -cough, -SOB GASTROINTESTINAL: -abdominal pain, -nausea, -vomiting, -diarrhea GENITOURINARY: -dysuria, -hematuria MUSCULOSKELETAL: -back pain, -neck pain SKIN: -rash or skin lesions. HEMATOLOGIC: -easy bruising or bleeding. LYMPHATIC: -swollen, enlarged glands. NEUROLOGICAL: -altered mental status or loss of consciousness, +headache, - acute neurologic symptoms PSYCHIATRIC: -anxiety, -depression. ALL OTHER SYSTEMS REVIEWED AND NEGATIVE. Physical Exam - Vital signs Vitals: Temp Pulse Resp BP Pulse Ox 98.6 F 57 L 20 150/72 H 98 09/13/17 10:39 09/13/17 10:39 09/13/17 10:39 09/13/17 10:39 09/13/17 10:39 - Notes Notes: PHYSICAL EXAMINATION: GENERAL: Well-appearing, well-nourished and in no acute distress. HEAD: Atraumatic, normocephalic. EYES: Pupils equal round and reactive to light, extraocular movements intact, sclera anicteric, conjunctiva are normal. ENT: nares patent, oropharynx clear without exudates. Moist mucous membranes. NECK: Normal range of motion, supple without lymphadenopathy LUNGS: Breath sounds clear to auscultation bilaterally and equal. No wheezes rales or rhonchi. HEART: Regular rate and rhythm without murmurs ABDOMEN: Soft, nontender, normoactive bowel sounds. No guarding, no rebound. No masses appreciated. EXTREMITIES: Normal range of motion, no pitting or edema. No cyanosis. NEUROLOGICAL: Chronic 4/5 LUE and LLE strength. Chronic left-sided facial drrop. Normal gait. Normal sensory exams. PSYCH: Normal mood, normal affect. SKIN: Warm, Dry, normal turgor, no rashes or lesions noted. Course - Re-evaluation Re-evalutation: Patient appears well and she is currently having no symptoms. CT head shows her old MCA stroke, but no acute findings. No new focal deficits found on her neuro exam. Instructed her to stay hydrated and continue taking Tylenol as needed for her headache. Her symptoms do not appear consistent with meningitis , SAH or ICH at this time. Will give her follow-up at her primary care physician and neurologist with very strict return precautions. - Vital Signs Vital signs: Temp Pulse Resp BP Pulse Ox 97.5 F 61 20 157/82 H 100 09/13/17 12:13 09/13/17 12:13 09/13/17 12:13 09/13/17 12:13 09/13/17 12:13 - Diagnostic Test Radiology reviewed: Image reviewed, Reports reviewed Radiology results interpreted by me: HEAD CT: NAD Discharge - Discharge Clinical Impression: Headache Qualifiers: Headache type: unspecified Headache chronicity pattern: unspecified pattern Intractability: not intractable Qualified Code(s): R51 - Headache Condition: Stable Disposition: HOME, SELF-CARE Additional Instructions: Your CAT scan does not show any signs of a new stroke. Continue the Tylenol 650 mg every 4 hours and add Tramadol as needed for your headache. Stay hydrated by drinking plenty of fluids. Follow-up with your primary care physician to discuss your blood pressure medications and further evaluation of your headaches. Return to the ER if you have worsening symptoms or any other concerns. HEADACHE: The physician does not feel that the headache you are experiencing has a serious underlying cause. Most headaches are due to emotional stress, with resultant muscle tension (tension headache). Occasionally, headaches are secondary to changes in the blood vessels of the scalp (vascular headache and migraine headache). Sometimes, a headache is the first symptom of another developing illness, such as a viral infection. You have no evidence of stroke, bleeding, meningitis, or other serious cause of your headache. The treatment of headaches varies with the severity and cause of the pain. Not all headaches need pain shots. In fact, there is evidence that using narcotics for headaches may make them worse in the long run. The physician will determine the therapy that's in your best interest. If you develop a fever, if the headache is different from any you've previously experienced, or if the headache progressively worsens, then call your physician at once or go to the emergency room. FOLLOW-UP CARE: If you have been referred to a physician for follow-up care, call the physician s office for an appointment as you were instructed or within the next two days. If you experience worsening or a significant change in your symptoms, notify the physician immediately or return to the Emergency Department at any time for re-evaluation. Forms: Elevated Blood Pressure Referrals: CALIRE NICE MD [Primary Care Provider] - Follow up as needed KELSI ALEJANDRO MD [NO LOCAL MD] - Follow up as needed
[2017-09-13 12:13] VITALS: BP 157/82
== END 2017-09-13 12:13 | disposition home or self-care (01) ==
LOC: ER 10:31
DX: R51 Headache (principal); I69.354 Hemiplegia and hemiparesis following cerebral infarction affecting left non-dominant side; I69.392 Facial weakness following cerebral infarction; I10 Essential (primary) hypertension; Z88.5 Allergy status to narcotic agent
CPT/HCPCS: 36415; 70450; 99284

== ENCOUNTER → 2018-02-23 | Outpatient (CLI) | payer MEDICARE, OTHER ==
--- NOTE | 2018-02-23 09:24 | WOMENS IMAGING REPORT ---
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 LIMITATIONS: None. FINDINGS: LUMBAR SPINE: The bone mineral density (BMD) measured from L1-L4 in the AP projection correlates with a T-score of 0.4, which is within normal limits as defined by the World Health Organization. This is similar comp ared to 2013 HIP: The bone mineral density (BMD) measured in the left femoral neck at the hip correlates with a T-score of -1.3, which is osteopenic as defined by the World Health Organization. This represents a 7% decl ine in bone density compared to 2013 IMPRESSION: 1. LUMBAR SPINE: Normal 2. HIP: Osteopenia COMMENT: The World Health Organization defines low BMD as follows: T-score: Normal: Greater than -1.0 Osteopenia: Between -1.0 and -2.5 Osteoporosis: Less than -2.5 without fractures Established osteoporosis: Less than -2.5 with fractures In general, you may wish to consider: Diagnosis Treatment Follow-up DEXA Normal BMD Prevention 2-3 years Osteopenia Prevention/Therapy 1-2 years Osteoporosis Therapy Yearly TECHNICAL DOCUMENTATION: JOB ID: [id number] [employer]- All Rights Reserved Reading location - IP/workstation name: [facility]
--- NOTE | 2018-02-28 16:01 | WOMENS IMAGING REPORT ---
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 LIMITATIONS: None. FINDINGS: No masses, calcifications or architectural distortion. No areas of suspicion. Read with the assistance of CAD. .[facility] - R2 Cenova Version 1.3 .[facility] Imaging - R2 Cenova Version 1.3 .[facility] Imaging - R2 Cenova Version 2.4 .[facility] - R2 Cenova Version 2.4 .[facility] - R2 Tie Tamper Version 9.2 IMPRESSION: NORMAL MAMMOGRAM. BIRADS 1. BREAST DENSITY: b. There are scattered areas of fibroglandular density. BIRAD: 1 NEGATIVE RECOMMENDATION: ROUTINE SCREENING COMMENT: The patient has been notified of the results by letter per SA requirements. Additional no tification policies are in place for contacting patient with suspicious or incomplete findings. Quality ID #[id number]: The [employer] recommends an annual screening mammogram for women aged 40 years or over. This facility utilizes a reminder system to ensure that all patients receive reminder letters, and/or direct phone calls for appointments. This includes reminders for routine scr eening mammograms, diagnostic mammograms, or other Breast Imaging Interventions when appropriate. Th is patient will be placed in the appropriate reminder system. The [employer] (ACR) has developed recommendations for screening MRI of the breast s in certain patient populations, to be used in conjunction with mammography. Breast MRI surveillanc e may be appropriate for women with more than 20% lifetime risk of developing breast cancer as deter mined by genetic testing, significant family history of the disease, or history of mantle radiation f or Hodgkins Disease. ACR Practice Guidelines 2008. DBT Technology DBT is a type of tomographic mammography. With conventional mammography, overlapping breast tissue ma y make lesions difficult to detect, even with good compression. DBT uses an x-ray tube that rotates a round the breast, taking images at different angles. These images are then combined to create thin sl ices of the breast that the radiologist can view as a 3D reconstruction. The [employer] unit can perform full-field digital mammograms (2D imaging); or DBT (3D imaging); or both, in a combination mode that quickly performs both the mammogram and the tomosynthesis scan while the breast is still compressed. PQRS 6045F: Fluoroscopic imaging is not utilized for breast tomosynthesis. TECHNICAL DOCUMENTATION: FINDING NUMBER: (1) ASSESSMENT: (1) JOB ID: [id number] [email or web address]- All Rights Reserved Reading location - IP/workstation name: [facility]
== END ==
LOC: WI 07:56
PROVIDERS: ATTEND Internal Medicine
DX: Z12.31 Encounter for screening mammogram for malignant neoplasm of breast (principal); M81.0 Age-related osteoporosis without current pathological fracture
CPT/HCPCS: 77063; 77067; 77080